=== PATIENT | female | born 2000 | race Caucasian/White ===

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

== ENCOUNTER 2018-01-14 17:26 | Emergency (ER) | payer OTHER, SELFPAY ==
[2018-01-14 17:27] VITALS: BP 98/77; PULSE 91; RESP 16; TEMP 36.9; O2SAT 100; BMI 20.2
--- NOTE | 2018-01-14 17:39 | EKG12_ITS ---
Test Reason : CP Blood Pressure : / mmHG Vent. Rate : 075 BPM Atrial Rate : 075 BPM P-R Int : 174 ms QRS Dur : 094 ms QT Int : 384 ms P-R-T Axes : 081 043 028 degrees QTc Int : 428 ms Normal sinus rhythm RSR' or QR pattern in V1 suggests right ventricular conduction delay Borderline ECG Confirmed by MYLENE LITTLE, MAIKEL ([id number]), multimedia editor ABAD IZAGUIRRE ([id number]) on 01/16/2018 1:44:38 PM Referred By: CLAUS Confirmed By:MAIKEL CHAKRABORTY MD
[2018-01-14 19:02] LABS: Absolute Lymphocyte Count 1.82 X10^3/ul (0.83-4.51); Absolute Neutrophil Count 10.8 X10^3/uL (2.0-7.7); Basophil# 0.02 X10^3/uL; Basophil% 0.1 % (0-1); Eosinophil# 0.04 X10^3/uL; Eosinophils% 0.3 % (0-5); Hematocrit 43.4 % (37-47); Hemoglobin 15.3 g/dl (12.0-15.0); Lymphocyte # 1.82 X10^3/ul (4.0); Lymphocyte % 13.2 % (19-41); Mean Corp Hgb Conc 35.3 g/gl (32-36); Mean Corpuscular Hgb 30.8 pg (27.0-32.0); Mean Corpuscular Volume 87.5 fL (81-99); Mean Platelet Vol. 9.4 fl (6.2-12.0); Monocyte# 1.11 X10^3/uL; Neutrophil # 10.81 X10^3/uL (2.7-7.7); Neutrophil % 78.3 % (47-70); Platelet Count 183 K/mm3 (150-450); RBC Distribution Width SD 38.2 fl (35.1-43.9); Red Blood Count 4.96 M/mm3 (4.2-5.4); White Blood Count 13.8 K/mm3 (4.4-11.0)
[2018-01-14 19:03] VITALS: BP 103/79; BP 109/73; BP 98/65; PULSE 67; PULSE 72; PULSE 89
[2018-01-14 19:14] LABS: POSITIVE COUNT NO; POSITIVE DIFFERENTIAL NO; POSITIVE MORPHOLOGY NO
--- NOTE | 2018-01-14 19:15 | RAD_ITS ---
STUDY: X-RAY CHEST REASON FOR EXAM: Female, 17 years old. Near syncope. Chest pain. TECHNIQUE: PA and lateral views. COMPARISON: 11/09/2017. FINDINGS: The lungs are clear and expanded. There is no demonstrated pleural abnormality. Normal size heart. Normal mediastinum and stephany. Normal visualized pulmonary arteries. Normal visualized aortic arch and descending thoracic aorta. Normal visualized thoracic spine. Normal visualized ribs, clavicles, and shoulders. There is no demonstrated abnormality of the visualized soft tissue structures of the upper abdomen. RAD/Chest PA and Lateral IMPRESSION: Normal x-ray examination of the chest. Electronically Signed: Sharona James MD at 20:18 EDT Tel , Service support ,
[2018-01-14 19:21] LABS: Anion Gap 9 (5-15); BUN 11 mg/dL (7-18); BUN/Creat Ratio 12.9 RATIO (10-20); Calcium,Total 9.3 mg/dL (8.5-10.1); Chloride 106 mmol/L (98-107); Creatinine, Serum 0.85 mg/dL (0.55-1.02); EST Glomerular Filtration Rate 91 mL/min (>60); Est Glom Filt Rate - Afr Amer 110 mL/min (>60); Estimated Creatinine Clearance 87.21 ml/min; Glucose 90 mg/dL (74-106); Potassium 3.2 mmol/L (3.5-5.1); Sodium Level 140 mmol/L (136-145)
[2018-01-14 20:02] VITALS: BP 110/74; PULSE 80; RESP 14; O2SAT 98
[2018-01-14 20:04] LABS: Thyroid Stim Hormone (TSH) 1.82 uIU/mL (0.358-3.74)
[2018-01-14 20:14] LABS: Pregnancy, Serum, hCG Quali. NEGATIVE Negative (0-9 Nonpreg)
--- NOTE | 2018-01-14 20:36 | ED.VISSUMM ---
- ER Visit Summary Date of Service: 01/14/18 Chief Complaint: [S pain and near syncope] History of Present Illness: The patient is a 17 F [presents the emergency department with an episode this afternoon where she started feeling lightheaded while at work and she states that, came on gradually. Patient states that then she felt short of breath and started feeling her heart was racing and she started having numbness throughout her whole body. Patient felt like she was going to pass out but did not actually pass out. Patient had similar episodes like this multiple times in the past for years and has seen a commercial lending assistant. Patient's had significant workup including event monitor and echo and no etiology has been found. Mother states that there is a history of hyperthyroidism in the family she is concerned about thyroid possibly. Patient denies recent illness. Patient does not think she is . Currently her symptoms are mostly resolved.] Physical Examination: [HEENT-PERRLA, EOMI. Cranial nerves II through XII grossly intact. TMs clear. Mucous membranes moist. No adenopathy. Cardiovascular-regular rate and rhythm without murmur or ectopy Lungs-clear to auscultation, chest wall stable without crepitus or subcu emphysema Abdomen-normoactive bowel sounds, soft, nontender, no rebound or rigidity, no peritoneal signs. Extremities-intact ?4, normal range of motion, normal pulses, atraumatic] Test Results: [EKG obtained on arrival showed a sinus rhythm with no segment changes. Ventricular rate was 75 bpm CBC with differential 13.8, hemoglobin 15, hematocrit 43, platelets 23. Chemistries unremarkable other than a slightly depressed potassium 3.2. TSH was 1.82. HCG was negative. Chest x-ray was normal.] Emergency Department Course and Treatment: [Patient was given 40 mEq of potassium chloride p.o.] Treatment Plan: [Patient will be referred to cardiology on-call]. Etiology of her symptoms is unclear however I cannot rule out anxiety disorder patient does have a history of anxiety. Disposition: [Discharged home in stable condition.] Impression: [Chest pain Near syncope Anxiety] This note was generated with [employer] dictation software. It may contain incorrect words, spelling, and punctuation that were not noted in review of the chart prior to signing ED Disposition - Plan for ED Patient: Chief Complaint: Chest Pain Referrals: Mallorie Caba MD [Primary Care Provider] -
--- NOTE | 2018-01-14 20:39 | ED.DCSUM_ITS ---
- ER Visit Summary Date of Service: 01/14/18 Chief Complaint: [S pain and near syncope] History of Present Illness: The patient is a 17 F [presents the emergency department with an episode this afternoon where she started feeling lightheaded while at work and she states that, came on gradually. Patient states that then she felt short of breath and started feeling her heart was racing and she started having numbness throughout her whole body. Patient felt like she was going to pass out but did not actually pass out. Patient had similar episodes like this multiple times in the past for years and has seen a pharmacy analyst. Patient's had significant workup including event monitor and echo and no etiology has been found. Mother states that there is a history of hyperthyroidism in the family she is concerned about thyroid possibly. Patient denies recent illness. Patient does not think she is . Currently her symptoms are mostly resolved.] Physical Examination: [HEENT-PERRLA, EOMI. Cranial nerves II through XII grossly intact. TMs clear. Mucous membranes moist. No adenopathy. Cardiovascular-regular rate and rhythm without murmur or ectopy Lungs-clear to auscultation, chest wall stable without crepitus or subcu emphysema Abdomen-normoactive bowel sounds, soft, nontender, no rebound or rigidity, no peritoneal signs. Extremities-intact ?4, normal range of motion, normal pulses, atraumatic] Test Results: [EKG obtained on arrival showed a sinus rhythm with no segment changes. Ventricular rate was 75 bpm CBC with differential 13.8, hemoglobin 15 , hematocrit 43, platelets 23. Chemistries unremarkable other than a slightly depressed potassium 3.2. TSH was 1.82. HCG was negative. Chest x-ray was normal.] Emergency Department Course and Treatment: [Patient was given 40 mEq of potassium chloride p.o.] Treatment Plan: [Patient will be referred to cardiology on-call]. Etiology of her symptoms is unclear however I cannot rule out anxiety disorder patient does have a history of anxiety. Disposition: [Discharged home in stable condition.] Impression: [Chest pain Near syncope Anxiety] This note was generated with [employer] dictation software. It may contain incorrect words, spelling, and punctuation that were not noted in review of the chart prior to signing ED Disposition - Plan for ED Patient: Chief Complaint: Chest Pain Referrals: Mallorie Caba MD [Primary Care Provider] -
--- NOTE | 2018-01-14 20:39 | ED.DEP ---
ED Disposition - Plan for ED Patient: Chief Complaint: Chest Pain Instructions: ED Chest Pain Atypical Unkn Cause, ED Stress React Referrals: Mallorie Caba MD [Primary Care Provider] - Victoriano Cabrera MD [STAFF PHYSICIAN] - 3-5 Days
[2018-01-14 20:47] VITALS: BP 105/72; PULSE 75; RESP 14; O2SAT 98
== END 2018-01-14 20:48 | disposition home or self-care (01) ==
LOC: ED 18:44
PROVIDERS: Emergency Provider Emergency Medicine; Family Provider Pediatrics; PCP Pediatrics
DX: R07.9 Chest pain, unspecified (principal); R55 Syncope and collapse; F41.9 Anxiety disorder, unspecified; Z87.891 Personal history of nicotine dependence
CPT/HCPCS: 71046; 80048; 84443; 84703; 85025; 93005; 99284; A4216

== ENCOUNTER 2018-04-02 01:25 | Emergency (ER) | payer OTHER, SELFPAY ==
[2018-04-02 01:28] VITALS: BP 102/62; PULSE 88; RESP 16; TEMP 36.8; O2SAT 98; BMI 19.5
--- NOTE | 2018-04-02 02:00 | ED.VISSUMM ---
- ER Visit Summary Date of Service: 04/02/18 Chief Complaint: Bilateral ear wounds History of Present Illness: The patient is a 17 F who has ear piercings that are engaged. She tried to increase the gauge 3 days ago. Since that time she has had some bleeding and pain. She was concerned that she tore her ear. She presented for a wound check to see if she needed any sutures. She otherwise is without complaint. Physical Examination: Afebrile vitals are normal Patient has bilateral ear appears with a gauge still on the right side of the left side plastic gauge has been removed the wound on the left is currently closed and there is dried blood there is no draining open wound or bleeding the gauge on the right was removed and shows a well-healing piercing Test Results: Not indicated Emergency Department Course and Treatment: Patient has no wounds that were required sutured closure. The right does not appear to have any obvious tears and does appear to be healing and there is not any open wound on the left that I would suture at this point. She was advised on local wound care and was discharged home. Treatment Plan: [] Disposition: Discharge Impression: Wound check bilateral ears This note was generated with [employer] dictation software. It may contain incorrect words, spelling, and punctuation that were not noted in review of the chart prior to signing ED Disposition - Plan for ED Patient: Chief Complaint: Wound Check Referrals: Mallorie Caba MD [Primary Care Provider] -
--- NOTE | 2018-04-02 02:03 | DCINST.ED_ITS ---
ED Disposition - Plan for ED Patient: Chief Complaint: Wound Check Referrals: Mallorie Caba MD [Primary Care Provider] - Additional Instructions: You were seen for a wound check on both of your ears. These appear to be well- healing. There are no wounds that would require stitches. Keep the areas clean and dry. They are okay to gently wash over with soap and water. Avoid submersion such as swimming or bath. Return for any new or worsening symptoms including increased pain increased bleeding increased redness or drainage.
--- OUTSIDE RECORDS SUMMARY | 2018-05-14 17:51 | XMS RPT_ITS ---
:2000 Author Organization OHIP [employer] Name Relationship Address Phone UGALDE MARCO Unavailable [address] [place] [address] August Unavailable [address] + [place] [address] WALWO Unavailable [address] + [place] [address] MARCO UGALDE Un[address] [place] [address] August Unavailable [address] + [place] [address] WALWO Unavailable [address] + [place] [address] CHERY STORES Unavailable [address] + [place] [address] [address] + [place] [address] August Unavailable [address] + [place] [address] CHARLA MALCOLM Unavailable Unavailable Unavailable CHERY STORES Unavailable [address] + [place] [address] [address]CO [address] Un[address] + [place] [address] August Unavailable [address] + [place] [address] CHARLA MALCOLM Unavailable Unavailable Unavailable August Unavailable [address] + [place] [address] CHARLA MALCOLM Unavailable Unavailable Unavailable August Unavailable [address] + [place] [address] CHARLA MALCOLM Unavailable Unavailable Unavailable CHERY STORES Unavailable [address] + [place] [address]CO [address]DE Un[address] + [place] [address] CHERY STORES Unavailable [address] + [place] [address] MARCO [address] Un[address] [place] [address] August Unavailable [address] + [place] [address] MALCOLMCHARLA Unavailable Unavailable Unavailable Care Team Providers Name Role Phone GARRY IZAGUIRRE Attending Unavailable REFERRED, SELF Referring Unavailable IZAGUIRRE, GARRY A Primary Care Unavailable IZAGUIRRE, GARRY A Attending Unavailable REFERRED, SELF Referring Unavailable IZAGUIRRE, GARRY A Primary Care Unavailable GABI MACDONALD Attending Unavailable IZAGUIRRE, GARRY A Referring Unavailable IZAGUIRRE, GARRY A Primary Care Unavailable KALPANA TINSLEY Attending Unavailable IZAGUIRRE, GARRY A Referring Unavailable IZAGUIRRE, GARRY A Primary Care Unavailable GABI MACDONALD Attending Unavailable IZAGUIRRE, GARRY A Referring Unavailable IZAGUIRRE, GARRY A Primary Care Unavailable Izaguirre, Garry Attending Unavailable Izaguirre, Garry Referring Unavailable Izaguirre, Garry Primary Care Unavailable Izaguirre, Garry Attending Unavailable Izaguirre, Garry Referring Unavailable Izaguirre, Garry Primary Care Unavailable Izaguirre, Garry Primary Care Unavailable Victoriano Grady Attending Unavailable Izaguirre, Garry Primary Care Unavailable Nereyda Altamirano Attending Unavailable Izaguirre, Garry Primary Care Unavailable Francia Rivas Attending Unavailable Izaguirre, Garry Primary Care Unavailable Blas Clayton Attending Unavailable PROBLEMS PROBLEMS DATE TYPE CONDITION / CODE ATTENDING STATUS SOURCE 06/21/2017 Unknown R55 - Syncope Garry Izaguirre Active Mobile and collapse / Community R55(ICD-10) Hospital Repository PROCEDURES PROCEDURES No Procedure Records FoundRESULTS RESULTS DISCHARGE INSTRUCTION Observed: 04/02/2018 Status: F Source: [place] 2:03 AM [facility] REPOSITORY [facility] Medical Records Department [address] [place] [address] Discharge Instruction 04/02/18 0201 MR#: [id number] Acct: [id number] Name: EMMA MALCOLM Rep #: [id number] : 2000 17 From: Blas Clayton MD PCP: Garry Izaguirre MD Status: REG ER ED Disposition - Plan for ED Patient: Chief Complaint: Wound Check Referrals: Garry Izaguirre MD [Primary Care Provider] - Additional Instructions: You were seen for a wound check on both of your ears. These appear to be well-healing. There are no wounds that would require stitches. Keep the areas clean and dry. They are okay to gently wash over with soap and water. Avoid submersion such as swimming or bath. Return for any new or worsening symptoms including increased pain increased bleeding increased redness or drainage. What to do if you have Problems For any increased pain, shortness of breath, bleeding, nausea or vomiting, chest pain, or any unexpected problems, contact your Primary Care Provider. Call [employer] [facility] ([phone]) or report to the closest Emergency Room. Call 911 if necessary. 04/02/18 0203 <Electronically signed by Blas Clayton MD> Date Blas Clayton MD Cosigner Signature (If Indicated): Date CC: Garry Izaguirre MD EMERGENCY DEPARTMENT Observed: 04/02/2018 Status: F Source: [place] SUMMARY 2:01 AM [facility] Medical Records Department [address] [place] [address] Emergency Department Summary 04/02/18 0200 MR#: [id number] Acct: [id number] Name: EMMA MALCOLM Rep #: [id number] : 2000 17 From: Blas Clayton MD PCP: Garry Izaguirre MD Status: REG ER - ER Visit Summary Date of Service: 04/02/18 Chief Complaint: Bilateral ear wounds History of Present Illness: The patient is a 17 F who has ear piercings that are engaged. She tried to increase the gauge 3 days ago. Since that time she has had some bleeding and pain. She was concerned that she tore her ear. She presented for a wound check to see if she needed any sutures. She otherwise is without complaint. Physical Examination: Afebrile vitals are normal Patient has bilateral ear appears with a gauge still on the right side of the left side plastic gauge has been removed the wound on the left is currently closed and there is dried blood there is no draining open wound or bleeding the gauge on the right was removed and shows a well-healing piercing Test Results: Not indicated Emergency Department Course and Treatment: Patient has no wounds that were required sutured closure. The right does not appear to have any obvious tears and does appear to be healing and there is not any open wound on the left that I would suture at this point. She was advised on local wound care and was discharged home. Treatment Plan: [] Disposition: Discharge Impression: Wound check bilateral ears This note was generated with [employer] dictation software. It may contain incorrect words, spelling, and punctuation that were not noted in review of the chart prior to signing ED Disposition - Plan for ED Patient: Chief Complaint: Wound Check Referrals: Garry Izaguirre MD [Primary Care Provider] - What to do if you have Problems For any increased pain, shortness of breath, bleeding, nausea or vomiting, chest pain, or any unexpected problems, contact your Primary Care Provider. Call [facility] ([phone]) or report to the closest Emergency Room. Call 911 if necessary. 04/02/18 0201 <Electronically signed by Blas Clayton MD> Date Blas Clayton MD Cosigner Signature (If Indicated): Date CC: Garry Izaguirre MD 12 LEAD ELECTROCARDIOGRAM Observed: 01/16/2018 Status: F Source: [place] 1:45 PM [facility] Cardiovascular Services [address] [place] [address] 12 Lead EKG 01/14/18 1733 MR#: [id number] Acct: [id number] Name: EMMA MALCOLM N Rep #: [id number] : 2000 17 From: Gunnar Sosa MD Attending Dr: Status: DEP ER Ordering Dr: Saul Colunga Date: 01/14/18 Location: ED Sex: F C Admitted: Test Reason : CP Blood Pressure : / mmHG Vent. Rate : 075 BPM Atrial Rate : 075 BPM P-R Int : 174 ms QRS Dur : 094 ms QT Int : 384 ms P-R-T Axes : 081 043 028 degrees QTc Int : 428 ms Normal sinus rhythm RSR' or QR pattern in V1 suggests right ventricular conduction delay Borderline ECG Confirmed by GUNNAR SOSA MD ([id number]), photograph editor ABAD IZAGUIRRE ([id number]) on 01/16/2018 1:44:38 PM Referred By: CLAUS Confirmed By:GUNNAR SOSA MD 01/16/18 1344 Date Gunnar Sosa MD CC: ED PHYSICIAN PROVIDER; Garry Izaguirre MD; Francia Rivas DO Signed DISCHARGE INSTRUCTION Observed: 01/14/2018 Status: F Source: [place] 8:40 PM [facility] Medical Records Department [address] [place] [address] Discharge Instruction 01/14/182038 MR#: [id number] Acct: [id number] Name: EMMA MALCOLM N Rep #: [id number] : 2000 17 From: Francia Rivas DO PCP: Garry Izaguirre MD Status: REG ER ED Disposition - Plan for ED Patient: Chief Complaint: Chest Pain Instructions: ED Chest Pain Atypical Unkn Cause, ED Stress React Referrals: Garry Izaguirre MD [Primary Care Provider] - Victoriano Cabrera MD [STAFF PHYSICIAN] - 3-5 Days What to do if you have Problems For any increased pain, shortness of breath, bleeding, nausea or vomiting, chest pain, or any unexpected problems, contact your Primary Care Provider. Call [employer] [facility] ([phone]) or report to the closest Emergency Room. Call 911 if necessary. 01/14/182039 <Electronically signed by Francia Rivas DO> Date Francia Rivas DO Cosigner Signature (If Indicated): Date CC: Garry Izaguirre MD EMERGENCY DEPARTMENT Observed: 01/14/2018 Status: F Source: [place] SUMMARY 8:39 PM [facility] Medical Records Department [address] [place] [address] Emergency Department Summary 01/14/182035 MR#: [id number] Acct: [id number] Name: EMMA MALCOLM Rep #: [id number] : 2000 From: Francia Rivas DO PCP: Garry Izaguirre MD Status: REG ER - ER Visit Summary Date of Service: 01/14/18 Chief Complaint: [S pain and near syncope] History of Present Illness: The patient is a 17 F [presents the emergency department with an episode this afternoon where she started feeling lightheaded while at work and she states that, came on gradually. Patient states that then she felt short of breath and started feeling her heart was racing and she started having numbness throughout her whole body. Patient felt like she was going to pass out but did not actually pass out. 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 Patient's had significant workup including event monitor and echo and no etiology has been found. Mother states that there is a history of hyperthyroidism in the family she is concerned about thyroid possibly. Patient denies recent illness. Patient does not think she is . Currently her symptoms are mostly resolved.] Physical Examination: [HEENT-PERRLA, EOMI. Cranial nerves II through XII grossly intact. TMs clear. Mucous membranes moist. No adenopathy. Cardiovascular-regular rate and rhythm without murmur or ectopy Lungs-clear to auscultation, chest wall stable without crepitus or subcu emphysema Abdomen-normoactive bowel sounds, soft, nontender, no rebound or rigidity, no peritoneal signs. Extremities-intact 4, normal range of motion, normal pulses, atraumatic] Test Results: [EKG obtained on arrival showed a sinus rhythm with no segment changes. Ventricular rate was 75 bpm CBC with differential 13.8, hemoglobin 15, hematocrit 43, platelets 23. Chemistries unremarkable other than a slightly depressed potassium 3.2. TSH was 1.82. HCG was negative. Chest x-ray was normal.] Emergency Department Course and Treatment: [Patient was given 40 mEq of potassium chloride p.o.] Treatment Plan: [Patient will be referred to cardiology on- call]. Etiology of her symptoms is unclear however I cannot rule out anxiety disorder patient does have a history of anxiety. Disposition: [Discharged home in stable condition.] Impression: [Chest pain Near syncope Anxiety] This note was generated with [employer] dictation software. It may contain incorrect words, spelling, and punctuation that were not noted in review of the chart prior to signing ED Disposition - Plan for ED Patient: Chief Complaint: Chest Pain Referrals: Garry Izaguirre MD [Primary Care Provider] - What to do if you have Problems For any increased pain, shortness of breath, bleeding, nausea or vomiting, chest pain, or any unexpected problems, contact your Primary Care Provider. Call [facility] ([phone]) or report to the closest Emergency Room. Call 911 if necessary. 01/14/182038 <Electronically signed by Francia Rivas DO> Date Francia Rivas DO Cosigner Signature (If Indicated): Date CC: Garry Izaguirre MD CBC W/DIFF, AUTOMATED Collected: 01/14/2018 Status: F Source: [place] 6:54 PM [facility] TYPE CODE TESTS RESULT OUT OF RANGE REFERENCE UNITS LAB L100.1000 4.4-11.0 K/mm3 High WBC 13.8 LAB L100.1200 4.2-5.4 M/mm3 Normal RBC 4.96 LAB L100.1300 12.0-15.0 g/dl High HGB 15.3 LAB L100.1400 37-47 % Normal HCT 43.4 LAB L100.1500 81-99 fL Normal MCV 87.5 LAB L100.1600 27.0-32.0 pg Normal MCH 30.8 LAB L100.1700 32-36 g/gl Normal MCHC 35.3 LAB L100.1810 11.6-14.6 % Normal RDW CV 12.0 LAB L100.1820 35.1-43.9 fl Normal RDW SD 38.2 LAB L100.1900 150-450 K/mm3 Normal PLT 183 LAB L100.2000 6.2-12.0 fl Normal MPV 9.4 LAB L100.2100 47-70 % High NEUT% 78.3 LAB L100.2200 19-41 % Low LY% 13.2 LAB L100.2300 0-10 % Normal MONO% 8.0 LAB L100.2400 0-5 % Normal EO% 0.3 LAB L100.2500 0-1 % Normal BASO% 0.1 LAB L100.2550 0.0-0.9 % Normal IM GRAN % 0.100 Result Comment: IG% - Immature Granulocytes (promyelocytes, myelocytes and metamyelocytes) > 1% indicates that a LEFT SHIFT is Present. LAB L100.2620 2.0-7.7 X10 3/uL High Absolute Neut 10.8 LAB L100.2720 0.83-4.51 X10 3/ul Normal Absolute Lymph 1.82 Performed By: #### L100.0100 #### [facility] [address] [place], [place], [address] BASIC METABOLIC Collected: 01/14/2018 Status: F Source: [place] PROFILE ([facility]) 6:54 PM [facility] TYPE CODE TESTS RESULT OUT OF RANGE REFERENCE UNITS LAB L501.0100 74-106 mg/dL Normal GLU 90 Result Comment: Please note revised GLUCOSE reference range effective 2017. LAB L501.1000 7-18 mg/dL Normal BUN 11 LAB L501.1100 0.55-1.02 mg/dL Normal CREAT,SERUM 0.85 Result Comment: The validity of the calculated GFR AND GFRAA in patients over 70 years has not been determined. Clinical correlation is essential. LAB L501.1110 >60 mL/min Normal EST GFR 91 Result Comment: Non- GFR Calc LAB L501.1115 >60 mL/min Normal EST GFR - AA 110 Result Comment: GFR Calc LAB L501.1255 ml/min Normal Estimated CRCL 87.21 LAB L501.1300 10-20 RATIO Normal BUN/CRE 12.9 LAB L501.2200 8.5-10 mg/dL Normal .1 CA 9.3 LAB L501.5300 136-14 mmol/L Normal 5 NA 140 LAB L501.5600 3.5-5. mmol/L Low 1 K 3.2 LAB L501.5900 98-107 mmol/L Normal CL 106 LAB L501.6100 21.0-3 mmol/L Normal 2.0 CO2 25.0 LAB L501.6200 5-15 Normal GAP 9 Performed By: #### L500.2500 #### [facility] [address] [facility]. [place], [place], [address] THYROID STIM HORMONE Collected: 01/14/2018 Status: F Source: [place] ([facility]) 6:54 PM [facility] TYPE CODE TESTS RESULT OUT OF RANGE REFERENCE UNITS LAB L501.9520 0.358-3.74 uIU/mL Normal TSH 1.82 Performed By: #### L501.9520 #### [facility] [address] [place], [place], [address] ,SERUM,HCG QUALI. Collected: Status: F Source: [place] 01/14/2018 6:54 PM [facility] TYPE CODE TESTS RESULT OUT OF REFERENCE UNITS RANGE LAB L700.6700 =>Qualitative mIU/mL Normal HCG Qual < 1 triggr LAB L700.7000 0-9 Nonpreg Negative Normal HCGSQUAL NEGATIVE Performed By: #### L700.6800 #### [facility] [address] [place], [place], [address] CHEST PA AND LATERAL Observed: 01/14/2018 Status: F Source: [place] 6:31 PM [facility] REPOSITORY [facility] Imaging Services [address] [place] [address] Chest PA and Lateral MR#: [id number] Acct: [id number] Name: EMMA MALCOLM Rep #: [id number] : 2000 F 17 From: Sharona James MD PCP: Garry Izaguirre MD Status: REG ER Study: Chest PA and Lateral Date of Exam: 01/14/18 Exam# [id number] Ordering Dr: Francia Rivas DO STUDY: X-RAY CHEST REASON FOR EXAM: Female, 17 years old. Near syncope. Chest pain. TECHNIQUE: PA and lateral views. COMPARISON: 11/09/2017. FINDINGS: The lungs are clear and expanded. There is no demonstrated pleural abnormality. Normal size heart. Normal mediastinum and stephany. Normal visualized pulmonary arteries. Normal visualized aortic arch and descending thoracic aorta. Normal visualized thoracic spine. Normal visualized ribs, clavicles, and shoulders. There is no demonstrated abnormality of the visualized soft tissue structures of the upper abdomen. RAD/Chest PA and Lateral IMPRESSION: Normal x-ray examination of the chest. Electronically Signed: Sharona James MD at 20:18 EDT Tel , Service support , CC: Garry Izaguirre MD; Francia Rivas DO Tape Weaver: Signed 12 LEAD ELECTROCARDIOGRAM Observed: 11/12/2017 Status: F Source: [place] 2:19 PM [facility] REPOSITORY [facility] Cardiovascular Services [address] [place] [address] 12 Lead EKG 11/09/17 2312 MR#: [id number] Acct: [id number] Name: EMMA MALCOLM Edie Rep #: [id number] : 2000 16 From: Gunnar Sosa MD Attending Dr: Status: DEP ER Ordering Dr: Nereyda Altamirano MD Date: 11/09/17 Location: ED Sex: F C Admitted: Test Reason : Blood Pressure : / mmHG Vent. Rate : 082 BPM Atrial Rate : 082 BPM P-R Int : 188 ms QRS Dur : 084 ms QT Int : 376 ms P-R-T Axes : 077 032 030 degrees QTc Int : 439 ms Normal sinus rhythm with sinus arrhythmia Low voltage QRS Septal infarct , age undetermined Abnormal ECG Confirmed by GUNNAR SOSA MD ([id number]), photograph editor ABAD IZAGUIRRE ([id number]) on 11/12/2017 2:19:22 PM Referred By: JAI Confirmed By:GUNNAR SOSA MD 11/12/17 1419 Date Gunnar Sosa MD CC: Nereyda Altamirano MD; Garry Izaguirre MD Signed DISCHARGE INSTRUCTION Observed: 11/10/2017 Status: F Source: [place] 3:05 AM [facility] Medical Records Department [address] [place] [address] Discharge Instruction 11/10/17304 MR#: [id number] Acct: [id number] Name: EMMA MALCOLM Rep #: [id number] : 2000 16 From: Nereyda Altamirano MD PCP: Garry Izaguirre MD Status: REG ER ED Disposition - Plan for ED Patient: Chief Complaint: Dizziness Instructions: ED Dizziness [facility] Referrals: Garry Izaguirre MD [Primary Care Provider] - What to do if you have Problems For any increased pain, shortness of breath, bleeding, nausea or vomiting, chest pain, or any unexpected problems, contact your Primary Care Provider. Call [facility] ([phone]) or report to the closest Emergency Room. Call 911 if necessary. 11/10/17304 <Electronically signed by Nereyda Altamirano MD> Date Nereyda Altamirano MD Cosigner Signature (If Indicated): Date CC: Garry Izaguirre MD EMERGENCY DEPARTMENT Observed: 11/10/2017 Status: F Source: [place] SUMMARY 3:05 AM [facility] Medical Records Department [address] [place] [address] Emergency Department Summary 11/09/17 2246 MR#: [id number] Acct: [id number] Name: EMMA MALCOLM Rep #: [id number] : 2000 From: Nereyda Altamirano MD PCP: Garry Izaguirre MD Status: REG ER - ER Visit Summary Date of Service: 11/09/17 Chief Complaint: Dizziness History of Present Illness: The patient is a 16 F presenting with dizziness and lightheadedness. She states this started yesterday. She has had dizziness which is worse with standing. Denies syncope. She states she has been drinking fluids but probably not enough. She says she has been out in the heat, but not too much. She denies abdominal pain. She has nausea with no vomiting. No diarrhea. She has had constant chest pain since this morning. Denies other complaints. Physical Examination: Vitals are stable. Patient is afebrile. Alert no acute distress. HEENT exam is unremarkable. Neck is supple. Lungs are clear and equal bilaterally. Heart is regular rate and rhythm. Abdomen is soft nontender nondistended. Extremities are unremarkable. Skin is warm and dry. No focal neurologic deficit. Remainder of exam is unremarkable. Emergency Department Course and Treatment: Patient is given Zofran p.o. Initially unable to obtain IV access. CBC, chemistries unremarkable other than potassium 3.3. Troponin is negative. D-dimer is 0.73. Chest x-ray shows no acute process. HCG negative. Orthostatics are negative. Due to elevated d-dimer, CTA chest was obtained after IV access established and is normal. Patient is able to tolerate p.o. in the emergency department. She is resting comfortably on reevaluation. She is advised to follow-up with her primary care physician. She is advised return to ED if worsening complaints. Disposition: Discharged home Impression: Dizziness This note was generated with [employer] dictation software. It may contain incorrect words, spelling, and punctuation that were not noted in review of the chart prior to signing ED Disposition - Plan for ED Patient: Chief Complaint: Dizziness Referrals: Garry Izaguirre MD [Primary Care Provider] - What to do if you have Problems For any increased pain, shortness of breath, bleeding, nausea or vomiting, chest pain, or any unexpected problems, contact your Primary Care Provider. Call [facility] ([phone]) or report to the closest Emergency Room. Call 911 if necessary. 11/10/17 0305 <Electronically signed by Nereyda Altamirano MD> Date Nereyda Altamirano MD Cosigner Signature (If Indicated): Date CC: Garry Izaguirre MD CTA CHEST W/WO Observed: 11/10/2017 Status: F Source: [place] CONTRAST 1:19 AM [facility] Imaging Services [address] [place] [address] CTA Chest W/WO Contrast MR#: [id number] Acct: [id number] Name: EMMA MALCOLM Rep #: [id number] : 2000 F 16 From: Freddy Isaac PCP: Garry Izaguirre MD Status: REG ER Study: CTA Chest W/WO Contrast Date of Exam: 11/10/17 Exam# [id number] Ordering Dr: Nereyda Altamirano MD STUDY: CTA CHEST REASON FOR EXAM: Female, 16 years old. Chest pain RADIATION DOSAGE (If Supplied By Facility): CTDIvol = ( 5.38 ) mGy, DLP = ( 158.03 ) mGycm TECHNIQUE: The examination was performed with the intravenous administration of 75 ml of Isovue 370 contrast material. Post-processing of the angiographic images was performed, with multiplanar reformation and 3D reconstruction. Individualized dose optimization techniques were used for this CT. COMPARISON: None. FINDINGS: Normal enhancement of the main pulmonary artery and right and left pulmonary arteries. Normal enhancement of the bilateral peripheral pulmonary arteries. There is no demonstrated pulmonary embolism. Normal thoracic aorta and visualized great vessels. There is no demonstrated aortic dissection. Normal heart and pericardium. Normal mediastinum. Normal hilar regions. Normal visualized trachea and bronchi. The lungs are well expanded. Normal pulmonary parenchyma. Normal pleura. Normal chest wall structures. Normal osseous structures. Normal visualized upper abdomen. CT/CTA Chest W/WO Contrast IMPRESSION: Normal CTA chest examination, without a demonstrated pulmonary embolism or arterial dissection. Electronically Signed: Freddy Gray MD at 2:32 EDT , Service support , CC: Nereyda Altamirano MD; Garry Izaguirre MD Tape Weaver: Signed CBC W/DIFF, AUTOMATED Collected: 11/10/2017 Status: F Source: [place] 12:43 AM [facility] TYPE CODE TESTS RESULT OUT OF RANGE REFERENCE UNITS LAB L100.1000 4.4-11.0 K/mm3 Normal WBC 7.3 LAB L100.1200 4.2-5.4 M/mm3 Normal RBC 5.06 LAB L100.1300 12.0-15.0 g/dl High HGB 15.1 LAB L100.1400 37-47 % Normal HCT 43.5 LAB L100.1500 81-99 fL Normal MCV 86.0 LAB L100.1600 27.0-32.0 pg Normal MCH 29.8 LAB L100.1700 32-36 g/gl Normal MCHC 34.7 LAB L100.1810 11.6-14.6 % Normal RDW CV 13.1 LAB L100.1820 35.1-43.9 fl Normal RDW SD 40.3 LAB L100.1900 150-450 K/mm3 Normal PLT 178 LAB L100.2000 6.2-12.0 fl Normal MPV 9.6 LAB L100.2100 47-70 % Normal NEUT% 49.2 LAB L100.2200 19-41 % Normal LY% 37.7 LAB L100.2300 0-10 % High MONO% 10.8 LAB L100.2400 0-5 % Normal EO% 1.5 LAB L100.2500 0-1 % Normal BASO% 0.5 LAB L100.2550 0.0-0.9 % Normal IM GRAN % 0.300 Result Comment: IG% - Immature Granulocytes (promyelocytes, myelocytes and metamyelocytes) > 1% indicates that a LEFT SHIFT is Present. LAB L100.2620 2.0-7.7 X10 3/uL Normal Absolute Neut 3.6 LAB L100.2720 0.83-4.51 X10 3/ul Normal Absolute Lymph 2.75 Performed By: #### L100.0100 #### [facility] [address] [place], [place], [address] BASIC METABOLIC Collected: 11/10/2017 Status: F Source: [place] PROFILE (BMP) 12:43 AM [facility] [place] [facility] TYPE CODE TESTS RESULT OUT OF RANGE REFERENCE UNITS LAB L501.0100 74-106 mg/dL Normal GLU 81 Result Comment: Please note revised GLUCOSE reference range effective 2017. LAB L501.1000 7-18 mg/dL Normal BUN 10 LAB L501.1100 0.55-1.02 mg/dL Normal CREAT,SERUM 0.81 Result Comment: The validity of the calculated GFR AND GFRAA in patients over 70 years has not been determined. Clinical correlation is essential. LAB L501.1110 >60 mL/min Normal EST GFR 96 Result Comment: Non- GFR Calc LAB L501.1115 >60 mL/min Normal EST GFR - AA 117 Result Comment: GFR Calc LAB L501.1255 ml/min Normal Estimated CRCL 88.72 LAB L501.1300 10-20 RATIO Normal BUN/CRE 12.3 LAB L501.2200 8.5-10 mg/dL Normal .1 CA 9.1 LAB L501.5300 136-14 mmol/L Normal 5 NA 142 LAB L501.5600 3.5-5. mmol/L Low 1 K 3.3 LAB L501.5900 98-107 mmol/L High CL 108 LAB L501.6100 21.0-3 mmol/L Normal 2.0 CO2 24.0 LAB L501.6200 5-15 Normal GAP 10 Performed By: #### L500.2500, L501.4010 #### [facility] [address] [place], [address] TROPONIN-I Collected: 11/10/2017 Status: F Source: [place] 12:43 AM [facility] TYPE CODE TESTS RESULT OUT OF RANGE REFERENCE UNITS LAB L501.4010 <0.045 ng/mL Normal < 0.015 TROPONIN-I Result Comment: TROPONIN-I EXPECTED VALUES <0.045 Negative 0.045 - 0.590 Consistent with Cardiac Damage > OR = 0.600 Critical Value Not every elevated troponin is indicative of ID. These values should be used with clinical judgement in examining the patient's clinical picture for diagnosis. To establish a diagnosis of ID versus myocardial injury, there must be a demonstrated rise and/or fall in the troponin values, in addition to ischemic symptoms, EKG changes, new regional wall motion abnormality, and/or angiographical evidence. PLEASE NOTE: REFERENCE RANGES EDITED 17 Performed By: #### L500.2500, L501.4010 #### [facility] [address] [facility]. [place], [place], [id number] D-DIMER QUANTITATIVE Collected: 11/10/2017 Status: F Source: [place] (DVT/PE) 12:43 AM [facility] TYPE CODE TESTS RESULT OUT OF RANGE REFERENCE UNITS LAB L300.8000 0.27-0.49 FEU/ug/m High alert D-DIMER 0.73 QUANT Result Comment: RESULTS CALLED TO NESTOR ARNOLD RN 11/10/17 0109 Tawanda Messina. REPORT READ BACK BY . D-Dimer ELEVATED (>0.49): Additional studies and clinical assessments are indicated to conclude diagnosis of: Deep Vein Thrombosis (DVT) or Pulmonary Embolism (PE) Performed By: #### L300.8000 #### [facility] [address] [place], [place], [id number] ,SERUM,HCG QUALI. Collected: Status: F Source: [place] 11/10/2017 12:43 AM [facility] TYPE CODE TESTS RESULT OUT OF REFERENCE UNITS RANGE LAB L700.7000 0-9 Nonpreg Negative Normal HCGSQUAL NEGATIVE LAB L700.6700 =>Qualitative mIU/mL Normal HCG Qual < 1 triggr Performed By: #### L700.6800 #### [facility] [address] [place], [address] CHEST 1 VIEW Observed: 11/09/2017 Status: F Source: [place] (PORTABLE) 10:46 PM [facility] Imaging Services [address] [place] [address] Chest 1 View (Portable) MR#: [id number] Acct: [id number] Name: EMMA MALCOLM Rep #: [id number] : 2000 F 16 From: Esperanza Sky MD PCP: Garry Izaguirre MD Status: REG ER Study: Chest 1 View (Portable) Date of Exam: 11/09/17 Exam# [id number] Ordering Dr: Nereyda Altamirano MD STUDY: X-RAY CHEST REASON FOR EXAM: Female, 16 years old. Dizziness. TECHNIQUE: Single AP portable view of the chest. COMPARISON: Prior chest radiograph from January 22, 2013 FINDINGS: The lungs are clear and expanded. There is no demonstrated pleural abnormality. Normal size heart. Normal mediastinum and stephany. Normal visualized pulmonary arteries. Normal visualized aortic arch and descending thoracic aorta. Normal visualized thoracic spine. Normal visualized ribs, clavicles, and shoulders. There is no demonstrated abnormality of the visualized soft tissue structures of the upper abdomen. RAD/Chest 1 View (Portable) IMPRESSION: Normal x-ray examination of the chest. Electronically Signed: Esperanza Sky MD at 23:23 EDT , Service support , CC: Nereyda Altamirano MD; Garry Izaguirre MD Tape Weaver: Signed PROGRESS Observed: 10/03/2017 Status: COMPLETED Source: [place] 7:01 PM [facility] REPOSITORY HNO ID: [id number] Author: La Clinton Service: (none) Author Type: Nurse Practitioner Type: Progress Notes Filed: 10/03/2017 7:19 PM Note Text: Subjective HPI HPI Emma Malcolm is a 16 year old female who presents today for CC of hives/welts This started this morning. She is also having itching burning sensation. She denies any new products, clothing, lotions, no fever or ill feeling symptoms. and detergent. She recently started on nuvaring 10 days ago Symptoms are worsened by nothing She has tried an ice pack Risk factors not known. PMH seasonal allergis BP 102/70 Pulse 106 Temp 36.9 ?C (98.4 ?F) (Left Tympanic) Resp 16 Wt 50.1 kg (110 lb 6.4 oz) ALLERGIES Allergen Reactions - Penicillins Swelling Pt is allergic to all Cillins ACTIVE PROBLEM LIST Lgi Bleed Family History Problem Relation Age of Onset - Thyroid Mother hypo in 2002 - other Mother glasses - Thyroid Maternal Grandmother hyop - other Father glasses for reading and driving - No Ocular Disease Sister - No Ocular Disease Maternal Grandfather - No Ocular Disease Paternal Grandmother - Cancer Paternal Grandfather - other Other Retinitis pigmentosis - other Maternal Uncle Retinitis pigmentosis - other Paternal Aunt High myopia no dx known/High myopia no dx known - other Other High myopia no dx known/High myopia no dx known Social History Marital status: Single Spouse name: Years of education: Number of children: Occupational History Occupation Employer Comment student Social History Main Topics Smoking status: Current Every Day Smoker Packs/day: 0.50 Years: 1.00 Types: Cigarettes Smokeless tobacco: Never Used Comment: 4-5 cigarettes per day Alcohol use: No Drug use: No Sexual activity: No Review of Systems Constitutional: Negative for chills, fever and malaise/fatigue. Genitourinary: Negative for dysuria. Musculoskeletal: Negative for joint pain and myalgias. Skin: Negative for rash. Welts on left back side hip and buttock Neurological: Negative for headaches. Objective Physical Exam Constitutional: She is oriented to person, place, and time and well-developed, well-nourished, and in no distress. No distress. HENT: Head: Normocephalic and atraumatic. Eyes: Conjunctivae and EOM are normal. Pupils are equal, round, and reactive to light. Neck: Normal range of motion. Neck supple. Pulmonary/Chest: Effort normal. Neurological: She is alert and oriented to person, place, and time. Skin: Skin is warm and dry. Rash noted. Rash is urticarial. There is erythema. Psychiatric: Affect normal. Nursing note and vitals reviewed. ASSESSMENT/PLAN: 1. Hives - ICD9: 708.9, ICD10: L50.9 - Likely viral or allergic etiology discussed with patient - Treatment with antihistamine- Zyrtec 10mg po QD and Benadryl OTC - 25 mg - 50 mg every 6 hours as needed - Anti itch therapy of OTC 1% Hydrocortisone cream and Calomine lotion recommended prn - Follow up if symptoms persist or worsen. Diagnosis and treatment plan were discussed and questions were answered to the patient's satisfaction. Pt acknowledged understanding of concepts and follow up plan. Specific signs and symptoms that would indicate the need for higher level of care were discussed in detail warranting prompt ER evaluation. La Clinton APRN.CNP CNOV Observed: 10/03/2017 Status: COMPLETED Source: [place] 6:30 PM [facility] REPOSITORY Office Visit (WSTR) EMMA MALCOLM ([id number]) 2000 F Date Time Provider Department 10/03/17 6:30 PM LA CLINTON (STEPHANIA) WSTR During your visit today, we recorded the following information about you: Temperature Pulse Respiration Blood pressure 98.4 degrees 106/minute 16/minute 102/70 Weight 50.1 kg La Clinton APRN.CNP 10/03/2017 7:19 PM Signed Subjective HPI HPI Emma Malcolm is a 16 year old female who presents today for CC of hives/welts This started this morning. She is also having itching burning sensation. She denies any new products, clothing, lotions, no fever or ill feeling symptoms. and detergent. She recently started on nuvaring 10 days ago Symptoms are worsened by nothing She has tried an ice pack Risk factors not known. PMH seasonal allergis BP 102/70 Pulse 106 Temp 36.9 ?C (98.4 ?F) (Left Tympanic) Resp 16 Wt 50.1 kg (110 lb 6.4 oz) ALLERGIES Allergen Reactions - Penicillins Swelling Pt is allergic to all Cillins ACTIVE PROBLEM LIST Lgi Bleed Family History Problem Relation Age of Onset - Thyroid Mother hypo in 2002 - other Mother glasses - Thyroid Maternal Grandmother hyop - other Father glasses for reading and driving - No Ocular Disease Sister - No Ocular Disease Maternal Grandfather - No Ocular Disease Paternal Grandmother - Cancer Paternal Grandfather - other Other Retinitis pigmentosis - other Maternal Uncle Retinitis pigmentosis - other Paternal Aunt High myopia no dx known/High myopia no dx known - other Other High myopia no dx known/High myopia no dx known Social History Marital status: Single Spouse name: Years of education: Number of children: Occupational History Occupation Employer Comment student Social History Main Topics Smoking status: Current Every Day Smoker Packs/day: 0.50 Years: 1.00 Types: Cigarettes Smokeless tobacco: Never Used Comment: 4-5 cigarettes per day Alcohol use: No Drug use: No Sexual activity: No Review of Systems Constitutional: Negative for chills, fever and malaise/fatigue. Genitourinary: Negative for dysuria. Musculoskeletal: Negative for joint pain and myalgias. Skin: Negative for rash. Welts on left back side hip and buttock Neurological: Negative for headaches. Objective Physical Exam Constitutional: She is oriented to person, place, and time and well-developed, well-nourished, and in no distress. No distress. HENT: Head: Normocephalic and atraumatic. Eyes: Conjunctivae and EOM are normal. Pupils are equal, round, and reactive to light. Neck: Normal range of motion. Neck supple. Pulmonary/Chest: Effort normal. Neurological: She is alert and oriented to person, place, and time. Skin: Skin is warm and dry. Rash noted. Rash is urticarial. There is erythema. Psychiatric: Affect normal. Nursing note and vitals reviewed. ASSESSMENT/PLAN: 1. Hives - ICD9: 708.9, ICD10: L50.9 - Likely viral or allergic etiology discussed with patient - Treatment with antihistamine- Zyrtec 10mg po QD and Benadryl OTC - 25 mg - 50 mg every 6 hours as needed - Anti itch therapy of OTC 1% Hydrocortisone cream and Calomine lotion recommended prn - Follow up if symptoms persist or worsen. Diagnosis and treatment plan were discussed and questions were answered to the patient's satisfaction. Pt acknowledged understanding of concepts and follow up plan. Specific signs and symptoms that would indicate the need for higher level of care were discussed in detail warranting prompt ER evaluation. La Clinton APRN.STEPHANIA Clinton APRN.CNP 10/03/2017 7:07 PM Signed ASSESSMENT/PLAN: 1. Hives - ICD9: 708.9, ICD10: L50.9 - Likely viral or allergic etiology discussed with patient - Treatment with antihistamine- Zyrtec 10mg po QD and Benadryl OTC - 25 mg - 50 mg every 6 hours as needed - Anti itch therapy of OTC 1% Hydrocortisone cream and Calomine lotion recommended prn - Follow up if symptoms persist or worsen. Referring Provider: SELF [[id number]] Allergies As of Date: 10/03/2017 Noted Allergy Reaction PENICILLINS 11/14/2005 7 - Swelling Comments: Pt is allergic to all Cillins Date Reviewed: 10/03/2017 Reviewed by: Kim Coronado Ma - Fully Assessed Primary Visit Diagnosis:Hives [L50.9] Prescriptions as of 10/03/2017 Sig: FLUDROCORTISONE 0.1 MG TABLET Take 0.1 mg by mouth. NUVARING 0.12 MG -0.015 MG/24* DOXYCYCLINE MONOHYDRATE 100 M* Take 1 capsule by mouth twice* FLUTICASONE 50 MCG/ACTUATION * Use 2 Sprays in each nostril * CITALOPRAM 10 MG TABLET Take 10 mg by mouth once andrei* HYDROCORTISONE ACETATE 25 MG * 1 Suppository by RECTAL route* HYDROCORTISONE ACETATE 25 MG * 1 Suppository by RECTAL route* CITALOPRAM 20 MG TABLET Take 20 mg by mouth once andrei* MEDROXYPROGESTERONE 150 MG/ML* Inject 1 mL intramuscularly e* IBUPROFEN ORAL Take by mouth as needed. Problem List As Of Date 10/03/2017 Noted Resolved LGI bleed [K92.2] INVALID FOR* Other instructions from your clinician: ASSESSMENT/PLAN: 1. Hives - ICD9: 708.9, ICD10: L50.9 - Likely viral or allergic etiology discussed with patient - Treatment with antihistamine- Zyrtec 10mg po QD and Benadryl OTC - 25 mg - 50 mg every 6 hours as needed - Anti itch therapy of OTC 1% Hydrocortisone cream and Calomine lotion recommended prn - Follow up if symptoms persist or worsen. Encounter Status:Closed by LA CLINTON CNP on 10/03/17 PROGRESS NOTE Observed: 10/03/2017 Status: COMPLETED Source: [place] 1:00 PM [facility] REPOSITORY We had the pleasure of seeing Emma Malcolm in the [facility] at [facility] on October 03, 2017. As you know, Emma is a 16 y.o. female seen in evaluation for dizziness. She was last seen on July 04, 2017. Emma notes continued and unchanged symptoms of intermittent dizziness occurring approximately once per week. There has been no additional syncope since her last episode of 2015 and no chest pain, palpitations, or shortness of breath. Emma has not started the prescribed Florinef as she forgot to take it. She reports consistently drinking at least 80 ounces of fluid daily. Past medical history was reviewed and is significant for anxiety. Current medications are Nuvaring There is an allergy to penicillin which causes hives. On review of systems, 10 of 14 systems were reviewed and were negative other than noted above. Family history was reviewed and is negative for congenital heart disease, premature coronary artery disease, and sudden . On review of social history Emma lives with her family in [place], [place]. Physical exam showed: Vitals: Height: 158.9 cm, 25 %ile (Z= -0.67) based on CDC 2-20 Years [id number] data using vitals from 10/03/2017. Weight - Scale: 50.2 kg, 19 %ile (Z= -0.89) based on CDC 2-20 Years [id number] data using vitals from 10/03/2017. Heart rate was 85 beats per minute, respiratory rate was 17 breaths per minute, and blood pressure was 116/65 mmHg. In general, Emma is acyanotic, well developed, well nourished, and in no acute distress. HEENT exam revealed that mucous membranes are moist. There is no thyromegaly or cervical lymphadenopathy. Respirations are comfortable. There is no use of accessory muscles. There are no retractions. Auscultation reveals good air movement bilaterally without wheezes, rales, or rhonchi. On palpation of the precordium, there are no lifts, heaves, or thrills. Auscultation reveals regular rate and rhythm with a normal S1 and physiologically split S2. There is no ejection click. There is no murmur, gallop, or rub. Radial and posterior tibial pulses are 2+, with no delay. Abdomen is soft, non-tender, and non- distended. There is no abdominal bruit. Liver is not palpable. Spleen is not palpable. Extremity exam reveals no cyanosis, clubbing, or edema. Extremities are warm and well perfused. Neurologic exam is grossly intact. There are no rashes or bruises on skin exam. A 12-lead EKG performed today that I personally reviewed is normal with sinus rhythm and a ventricular rate of 85, SC interval of 165 msec, QRS duration of 109 msec, QTc of 424 msec, QRS axis of +99 degrees, no atrial enlargement, no ventricular hypertrophy, and no ST/T changes. The event monitor was returned today with no transmissions sent per patient report. DIAGNOSES: 1. Vasovagal dizziness/syncope. A. Normal EKG. B. Prior normal echocardiogram (August 04, 2015). 2. Palpitations. ASSESSMENT: Emma is a 16 y.o. female with symptoms most consistent with unchanged vasovagal dizziness. Once again, we will trial Florinef for improvement of her symptoms. RECOMMENDATIONS: 1. Continue primary medical care as directed. 2. SBE prophylaxis is not indicated. Begin Florinef 0.1 mg daily. 3. No activity restrictions from a cardiovascular perspective. 4. Continue to drink a minimum of 80-100 ounces of caffeine free fluid daily. 5. No scheduled follow-up is recommended at this time. Should Florinef improve symptoms, we will plan to see Emma in follow-up in 6 months. EMERGENCY DEPARTMENT Observed: 08/09/2017 Status: F Source: [place] SUMMARY 8:21 AM [facility] Medical Records Department [address] [place] [address] Emergency Department Summary 08/04/17 2333 MR#: [id number] Acct: [id number] Name: EMMA MALCOLM Rep #: [id number] : 2000 16 From: Victoriano Grady DO PCP: Garry Izaguirre MD Status: DEP ER - ER Visit Summary Date of Service: 08/04/17 Chief Complaint: Pelvic pain History of Present Illness: The patient is a 16 F who presents with left-sided pelvic pain. This began this afternoon. States is very similar to when she has had ovarian cyst. She had been seen Dr. Bobo for her cyst until they stopped giving her Depakote she has been receiving DepoCyt her primary care doctor. She has not had any recent ultrasounds. No vomiting diarrhea. No fevers. No vaginal discharge. Physical Examination: Afebrile vital signs are stable Gen: Well-nourished well-developed Head: Normocephalic atraumatic Eyes: Perrl EOMI ENT: TMs clear no rhinorrhea moist mucous membranes Neck: Supple no lymphadenopathy no JVD nontender CVS: Regular rate rhythm no murmurs normal S1-S2 Respiratory: No distress clear to auscultation bilaterally chest nontender Abdomen: Soft mild left lower pelvic tenderness palpation without guarding or rebound nondistended normal bowel sounds no masses Back: Nontender Extremity: Nontender no edema Skin: Normal color no rash Neuro: alert orientated 3 CN II-XII intact normal strength sensation reflexes gait cerebellar Psych: Normal affect normal mood Test Results: Urinalysis and test are negative. CT of the abdomen pelvis demonstrate a 4.3 cm pelvic cyst. Emergency Department Course and Treatment: Patient received a dose of Toradol. The patient will need to follow-up with Dr. Bobo. Impression: 1. 4.3 cm pelvic cyst on the left This note was generated with [employer] dictation software. It may contain incorrect words, spelling, and punctuation that were not noted in review of the chart prior to signing ED Disposition - Plan for ED Patient: Disposition: Home or Assisted Living Chief Complaint: Abd Pain Instructions: ED Cyst Ovarian Prescriptions: Hydrocodone Bitart/Apap 5-325 [May 5/325] 1 tab PO Q6H PRN PRN 3 Days #10 tab PRN Reason: Pain Referrals: Mekhi Bobo [STAFF PHYSICIAN] - As soon as possible What to do if you have Problems For any increased pain, shortness of breath, bleeding, nausea or vomiting, chest pain, or any unexpected problems, contact your Primary Care Provider. Call [facility] ([phone]) or report to the closest Emergency Room. Call 911 if necessary. 08/09/17 0821 <Electronically signed by Victoriano Grady DO> Date Victoriano Grady DO Cosigner Signature (If Indicated): Date CC: Garry Izaguirre MD ,URINE Collected: 08/04/2017 Status: F Source: [place] 9:30 PM [facility] Order Comment: Order Date: 08/04/17 TYPE CODE TESTS RESULT OUT OF REFERENCE UNITS RANGE LAB L400.8000 Negative Normal HCGUQUAL Negative Result Comment: Very dilute urine specimens, as indicated by a low specific gravity, may not contain traveling representative levels of hCG. If is still suspected, a first morning urine specimen should be collected 48 hours later and tested. Performed By: #### L400.7600 #### [facility] [address], [address] URINALYSIS, COMPLETE Collected: 08/04/2017 Status: F Source: [place] 9:30 PM [facility] Order Comment: Order Date: 08/04/17 How was Urine Obtained? COMMUNITY RELATIONS DIRECTOR TO SPECIFY TYPE CODE TESTS RESULT OUT OF RANGE REFERENCE UNITS LAB L400.3000 Yellow COLOR Normal Yellow LAB L400.3050 Clear Normal CLARITY Clear LAB L400.3200 Normal mg/dl Normal GLUCOSE, UR Normal LAB L400.3300 Negative mg/dL Normal BILIRUBIN URINE Negative LAB L400.3400 Negative mg/dl High 5 KETONE UR LAB L400.3465 1.002-1.030 Normal SP.GR. DIPSTX 1.020 LAB L400.3550 5.0 - 8.0 pH UR Normal 6.0 LAB L400.3600 Negative mg/dl PROT Normal DIPSTX Negative LAB L400.3700 Normal mg/dl High 1 UROBILI LAB L400.3750 Negative Normal NITRITE UR Negative LAB L400.3780 Negative /ul Normal OCCULT BLOOD-UR Negative LAB L400.3800 Negative /ul High LEUK 25 ESTERASE LAB L400.4050 0-5 /hpf WBC Normal 0-5 SEEN LAB L400.4100 0-5 /hpf Normal RBC-UA 0-5 SEEN LAB L400.4150 5-10 /hpf SQUAM Normal EPI 0-5 SEEN LAB L400.4300 None Seen /hpf 0 Normal BACTERIA SEEN LAB L400.4350 <or=2+ /hpf 2+ Normal MUCUS, URINE Performed By: #### L400.0001 #### [facility] [address] [facility] [place], [address] ABDOMEN/PELVIS W IV CONT Observed: 08/04/2017 Status: F Source: [facility] 9:18 PM [facility] Imaging Services [address] [place] [address] Abdomen/Pelvis W IV Cont ONLY MR#: [id number] Acct: [id number] Name: EMMA MALCOLM Edie Rep #: [id number] : 2000 F 16 From: Bill Butler MD PCP: Garry Izaguirre MD Status: REG ER Study: Abdomen/Pelvis W IV Cont ONLY Date of Exam: 08/04/17 Exam# [id number] Ordering Dr: Victoriano Grady DO STUDY: CT ABDOMEN AND PELVIS WITH CONTRAST REASON FOR EXAM: Female, 16 years old. Abdominal pain. RADIATION DOSAGE (If Supplied By Facility): CTDIvol = ( 10.87 ) mGy, DLP = ( 249.31 ) mGycm TECHNIQUE: Transaxial images were obtained from the dome of the diaphragm to the symphysis pubis without oral contrast. 100ML ml of Isovue 300 contrast was administered. Sagittal and coronal images were reconstructed. Individualized dose optimization techniques were used for this CT. COMPARISON: 01/12/2010. FINDINGS: The visualized lung bases are unremarkable. The visualized portions of the heart are within normal limits. Normal liver. Normal gallbladder and extrahepatic biliary system. Normal spleen. Normal pancreas. Normal bilateral adrenal glands. Normal right kidney. Normal left kidney. Evaluation of the GI tract is limited by absence of oral contrast. Cannot exclude stomach wall thickening. No dilated loops of bowel or evidence for obstruction. Cannot exclude segmental thickening of the bush of the small or large bowel. Cannot exclude enteritis or colitis. Moderate diffuse fecal retention. There has been appendectomy. Normal abdominal aorta. Normal inferior vena cava. Normal retroperitoneum. Normal urinary bladder. Normal visualized uterus. There is a 4.6 cm cystic mass in the left pelvis for which further evaluation with pelvic ultrasound is recommended. Normal abdominal wall. Normal osseous structures. CT/Abdomen/Pelvis W IV Cont ONLY IMPRESSION: There is a 4.6 cm cystic mass in the left pelvis for which further evaluation with pelvic ultrasound is recommended. No other definite abnormalities. Electronically Signed: Bill Butler MD at 23:13 EDT , Service support , CC: Victoriano Grady DO; Garry Izaguirre MD Tape Weaver: Signed PROGRESS NOTE Observed: 07/04/2017 Status: COMPLETED Source: [place] 2:30 PM [facility] REPOSITORY We had the pleasure of seeing Emma Malcolm in the [facility] at [facility] on July 04, 2017. As you know, Emma is a 16 y.o. female seen in evaluation for dizziness. She was last seen by my colleague, Dr. Lafleur, on August 04, 2015. Emma notes continued and unchanged symptoms of intermittent dizziness occurring approximately once per week. Symptoms occur randomly and are associated with feelings of rapid heart rate, blurry vision, flushing, and nausea. There has been no chest pain or shortness of breath. There has been no recent syncope with the only syncopal episode occurring in 2016. Emma drinks a minimum of 100 ounces of caffeine free fluid daily. Past medical history was reviewed and is significant for anxiety. Current medications are Celexa, ibuprofen, and Depo-Provera. There is an allergy to penicillin which causes hives. On review of systems, 10 of 14 systems were reviewed and were negative other than noted above. Family history was reviewed and is negative for congenital heart disease, premature coronary artery disease, and sudden . On review of social history Emma lives with her family in [place], [place]. Physical exam showed: Vitals: Height: 158.9 cm, 25 %ile (Z= -0.66) based on [facility] 2-20 Years [id number] data using vitals from 07/04/2017. Weight - Scale: 49.3 kg, 16 %ile (Z= -0.99) based on [facility] 2-20 Years [id number] data using vitals from 07/04/2017. Heart rate was 90 beats per minute, respiratory rate was 18 breaths per minute, and blood pressure was 127/79 mmHg. In general, Emma is acyanotic, well developed, well nourished, and in no acute distress. HEENT exam revealed that mucous membranes are moist. There is no thyromegaly or cervical lymphadenopathy. Respirations are comfortable. There is no use of accessory muscles. There are no retractions. Auscultation reveals good air movement bilaterally without wheezes, rales, or rhonchi. On palpation of the precordium, there are no lifts, heaves, or thrills. Auscultation reveals regular rate and rhythm with a normal S1 and physiologically split S2. There is no ejection click. There is no murmur, gallop, or rub. Radial and posterior tibial pulses are 2+, with no delay. Abdomen is soft, non-tender, and non- distended. There is no abdominal bruit. Liver is not palpable. Spleen is not palpable. Extremity exam reveals no cyanosis, clubbing, or edema. Extremities are warm and well perfused. Neurologic exam is grossly intact. There are no rashes or bruises on skin exam. A 12-lead EKG performed today that I personally reviewed is normal with sinus rhythm and a ventricular rate of 90, SC interval of 165 msec, QRS duration of 97 msec, QTc of 432 msec, QRS axis of +111 degrees, no atrial enlargement, no ventricular hypertrophy, and no ST/T changes. DIAGNOSES: 1. Vasovagal dizziness/syncope. A. Normal EKG. B. Prior normal echocardiogram (August 04, 2015). 2. Palpitations. ASSESSMENT: Emma is a 16 y.o. female with symptoms most consistent with vasovagal dizziness. Evaluation has demonstrated a normal cardiac examination, EKG, and prior echocardiogram. We will further evaluate her associated palpitations with an event monitor. Given the chronic and unchanged symptoms, we will trial fludrocortisone for symptom relief. RECOMMENDATIONS: 1. Continue primary medical care as directed. 2. SBE prophylaxis is not indicated. Begin Florinef 0.1 mg daily. 3. No activity restrictions from a cardiovascular perspective. 4. Continue to drink a minimum of 80-100 ounces of caffeine free fluid daily. 5. We will plan to see Emma in follow-up in 3 months for repeat evaluation. CBC W/DIFF, AUTOMATED Collected: 06/13/2017 Status: F Source: [place] 4:20 PM [facility] [place] TYPE CODE TESTS RESULT OUT OF RANGE REFERENCE UNITS LAB L100.1000 4.4-11.0 K/mm3 Normal WBC 7.3 LAB L100.1200 4.2-5.4 M/mm3 Normal RBC 5.17 LAB L100.1300 12.0-15.0 g/dl Normal HGB 14.8 LAB L100.1400 37-47 % Normal HCT 45.4 LAB L100.1500 81-99 fL Normal MCV 87.8 LAB L100.1600 27.0-32.0 pg Normal MCH 28.6 LAB L100.1700 32-36 g/gl Normal MCHC 32.6 LAB L100.1810 11.6-14.6 % Normal RDW CV 13.5 LAB L100.1820 35.1-43.9 fl Normal RDW SD 42.7 LAB L100.1900 150-450 K/mm3 Normal PLT 179 LAB L100.2000 6.2-12.0 fl Normal MPV 9.4 LAB L100.2100 47-70 % Low NEUT% 23.8 LAB L100.2200 19-41 % High LY% 58.3 LAB L100.2300 0-10 % High MONO% 14.9 LAB L100.2400 0-5 % Normal EO% 0.8 LAB L100.2500 0-1 % High BASO% 1.8 LAB L100.2550 0.0-0.9 % Normal IM GRAN % 0.400 Result Comment: IG% - Immature Granulocytes (promyelocytes, myelocytes and metamyelocytes) > 1% indicates that a LEFT SHIFT is Present. LAB L100.2620 2.0-7.7 X10 3/uL Low Absolute Neut 1.8 LAB L100.2720 0.83-4.51 X10 3/ul Normal Absolute Lymph 4.28 Performed By: #### L100.0100 #### [facility] [address] [place], [place], [address] BASIC METABOLIC Collected: 06/04/2017 Status: F Source: [place] PROFILE (BMP) 2:02 PM [facility] [place] TYPE CODE TESTS RESULT OUT OF RANGE REFERENCE UNITS LAB L501.0100 70-110 mg/dL Normal GLU 83 LAB L501.1000 7-18 mg/dL Normal BUN 7 LAB L501.1100 0.55-1.02 mg/dL Normal 0.86 CREAT,SERUM Result Comment: The validity of the calculated GFR AND GFRAA in patients over 70 years has not been determined. Clinical correlation is essential. LAB L501.1110 >60 mL/min Normal EST GFR 91 Result Comment: Non- GFR Calc LAB L501.1115 >60 mL/min Normal EST GFR - AA 111 Result Comment: GFR Calc LAB L501.1300 10-20 RATIO Low BUN/CRE 8.2 LAB L501.2200 8.5-10.1 mg/dL Normal CA 9.2 LAB L501.5300 136-145 mmol/L Normal NA 137 LAB L501.5600 3.5-5.1 mmol/L Normal K 3.8 LAB L501.5900 98-107 mmol/L Normal CL 106 LAB L501.6100 21.0-32.0 mmol/L Low CO2 20.0 LAB L501.6200 5-15 Normal GAP 11 Performed By: #### L500.2500, L501.9520 #### [facility] [address], [address] THYROID STIM HORMONE Collected: 06/04/2017 Status: F Source: [place] (TSH) 2:02 PM [facility] [place] TYPE CODE TESTS RESULT OUT OF RANGE REFERENCE UNITS LAB L501.9520 0.358-3.74 uIU/mL Normal TSH 1.95 Performed By: #### L500.2500, L501.9520 #### [facility] [address] [place], [address] CBC W/DIFF, AUTOMATED Collected: 06/04/2017 Status: C Source: [place] 2:02 PM [facility] [place] TYPE CODE TESTS RESULT OUT OF RANGE REFERENCE UNITS LAB L100.1000 4.4-11.0 K/mm3 High WBC 11.9 LAB L100.1200 4.2-5.4 M/mm3 Normal RBC 5.32 LAB L100.1300 12.0-15.0 g/dl High HGB 15.5 LAB L100.1400 37-47 % Normal HCT 46.6 LAB L100.1500 81-99 fL Normal MCV 87.6 LAB L100.1600 27.0-32.0 pg Normal MCH 29.1 LAB L100.1700 32-36 g/gl Normal MCHC 33.3 LAB L100.1810 11.6-14.6 % Normal RDW CV 13.1 LAB L100.1820 35.1-43.9 fl Normal RDW SD 42.3 LAB L100.1900 150-450 K/mm3 Low PLT 99 LAB L100.2000 6.2-12.0 fl Normal MPV 10.3 LAB L100.2100 47-70 % Low NEUT% 21.5 LAB L100.2200 19-41 % High LY% 53.6 LAB L100.2300 0-10 % High MONO% 19.2 LAB L100.2400 0-5 % Normal EO% 0.2 LAB L100.2500 0-1 % High BASO% 5.3 LAB L100.2550 0.0-0.9 % Normal IM GRAN % 0.200 Result Comment: IG% - Immature Granulocytes (promyelocytes, myelocytes and metamyelocytes) > 1% indicates that a LEFT SHIFT is Present. LAB L100.2620 2.0-7.7 X10 3/uL Normal Absolute Neut 2.6 LAB L100.2720 0.83-4.51 X10 3/ul High Absolute Lymph 6.35 LAB L100.4500 Normal SMEAR COMMENT SEE COMMENTS Result Comment: MONOCYTOSIS NOTED LYMPHOCYTOSIS NOTED LAB L100.4800 Normal RARE TOXIC GRAN LAB L100.5500 ADEQ Normal MOD PLT EST DEC LAB L100.7300 Normal RARE ANISO LAB L100.9900 Normal PATH REV Reviewed Result Comment: Leukocytosis and lymphocytosis. Reactive lymphocytes are noted. Mild Thrombocytopenia. Mariano Gleason M.D. 06/05/17 AMENDED REPORT 06/05/17 1641 PATH REV previously reported as: September sander Performed By: #### L100.0100 #### [facility] [address] [place], [address] PROGRESS NOTE Observed: 06/04/2017 Status: COMPLETED Source: MARGOT 1:00 PM [facility] REPOSITORY Patient ID: Emma Malcolm is a 16 y.o. female. Her chief complaint(s) include: Loss of Consciousness . Assessment: 1. Near syncope 2. Streptococcal sore throat 3. Left acute suppurative otitis media 4. URI, acute Plan: Emma was seen today for loss of consciousness. Diagnoses and all orders for this visit: Near syncope - AMB Referral To Cardiology - Complete Blood Count with Diff (Lab Collect); Future - Basic Metabolic Panel (Lab Collect); Future - TSH (Lab Collect); Future Streptococcal sore throat - Discontinue: cefdinir (OMNICEF) 300 MG capsule; Take 1 Cap (300 mg) by mouth 2 times daily for 10 days - cefdinir (OMNICEF) 300 MG capsule; Take 1 Cap (300 mg) by mouth 2 times daily for 10 days Left acute suppurative otitis media URI, acute Symptomatic treatment for uri symptoms. To monitor closely for worsening symptoms/concerns. Return for Well Visit and as needed. Subjective: She is unaccompanied. Loss of Consciousness This problem is new. The duration has been 3 years. The onset has been gradual (usually will start with feeling of lightheadness and vision gets tunnel). The course is decreasing (rare episodes). The patient's symptoms have included fatigue, congestion (currently has uri symptoms but norrmally not associated with lightheadedness.), rhinorrhea and headaches (with the episodes but otherwise rare headache). The patient's symptoms have included no fever, no fussiness, no sore throat, no cough, no wheezing, no bilateral ear pain, no abdominal pain, no diarrhea and no vomiting. The location of symptoms have included the head. Exacerbated by: unsure---denies any problems associated with eating/drinking. There have been no previous interventions. Review of Systems Cardiovascular: Positive for syncope. Objective: Physical Exam Constitutional: She appears well. She is active. No distress. HENT: Head: Atraumatic. Right Ear: Tympanic membrane normal. Left Ear: Tympanic membrane is erythematous (with fluid). Nose: Nasal discharge (yellow nasal drainage) present. Mouth/Throat: Throat is red (with palatal petichiae). Mucous membranes are moist. Eyes: Conjunctivae are normal. Neck: Neck adenopathy (tender anterior cervical lymphadenopathy) present. Cardiovascular: Normal rate and regular rhythm. No murmur heard. Pulmonary/Chest: Breath sounds normal. There is normal air entry. Neurological: She is alert. Vitals reviewed: Blood pressure 111/54, pulse (!) 118, temperature 36.1 C (97 F), weight 48.6 kg. ALLERGIES ALLERGIES DATE TYPE / CODE NAME / CODE REACTION SEVERITY SOURCE 04/02/2018 Drug Penicillins/[id number] Unknown Unknown Mobile Allergy/416 0476(RXNORM) [facility] 561632([facility] ED CT) Repository 01/12/2011 Drug PENICILLINS [facility] Class/34289 Hospital 1003(SNOMED Repository CT) 11/14/2005 Drug PENICILLINS [facility] Class/22376 [address] [place] 1003(SNOMED Repository CT) ENCOUNTERS ENCOUNTERS ADMIT/DISCHARGE ACCOUNT ADMITTING ENCOUNTER LOCATION SOURCE NUMBER CLASS 04/02/2018/04/02/20 [id number] Emergency [address] ing:ED Repository 01/14/2018/01/15/20 [id number] Emergency [address] ing:ED Repository 11/09/2017/11/11/19 [id number] Emergency [address] ing:ED Repository 10/03/2017/10/05/19 [id number] Ambulatory [address] Repository 10/03/2017/10/04/19 [id number] Ambulatory Building:[address] Repository 08/04/2017/08/05/19 [id number] Emergency [address] ing:ED Repository 08/01/2017/08/02/19 [id number] Ambulatory Building:[address] Repository 07/04/2017/07/04/19 [id number] Ambulatory Building:[address] Repository 06/22/2017/06/22/19 [id number] Ambulatory Building:[address] Repository 06/13/2017 [id number] Ambulatory [facility] ing:MTLAB Repository 06/04/2017 [id number] Ambulatory [facility] ing:MTLAB Repository 06/04/2017/06/04/19 [id number] Ambulatory Building:[address] Repository PAYERS PAYERS ENCOUNTER GUARANTOR PAYER SUBSCRIBER SOURCE 04/02/2018 EMMA Reyes [facility] Gerardo [id number] Insurance:GPATPA *NOT SOLOMONDOB: [facility] [address] CONTRACTED*Policy [id number] Number: Repository [id number]: 330 [id number] [phone] (HP) Date:[id number] [address]HO: 04/02/2018 Secondary NOT GIVENUNK Gerardo Insurance:SELF PAY [facility] Number: Effective Repository Date:2018-04-02 01/14/2018 EMMA Reyes JOSE MANUEL [id number] Insurance:GPATPA *NOT SOLOMONDOB: [facility]*Policy [id number] Number: Repository [address]Adx: [phone] [id number] [phone] (HP) Date:3111-44-03FI [address], [place] [address]WS: 01/14/2018 Secondary NOT GIVENUNK Mobile Insurance:SELF PAY [facility] Number: Effective Repository Date:2018-01-14 11/09/2017 EMMA Irizarry Primary AUGUST M Gerardo [id number] Insurance:GPATPA *NOT SOLOMONDOB: [facility] CONTRACTED*Policy [id number] Number: Repository [address]Vwk: 330 [id number] [phone] (HP) Date:5688-69-92WW [address], [place] [address]KS: 11/09/2017 Secondary NOT GIVENUNK Mobile Insurance:SELF PAY [facility] Number: Effective Repository Date:2017-11-09 10/03/2017 EMMA RUTHERFORDB: Primary AUGUST SOLOMONDOB: [place] Insurance:GENERIC [id number] [address] Number: [place] Repository [address]Mmd: [phone] [id number] [phone] (HP) Date: 08/04/2017 EMMA Irizarry Primary AUGUST SOLOMONDOB: Gerardo [id number] Insurance:GPATPA *NOT [id number]*Policy [place] Number: Repository [address]Gbz: 330 [id number] [phone] (HP) Date:3516-53-62VC [address], [place] [address]TE: 08/04/2017 Secondary NOT GIVENUNK Gerardo Insurance:SELF PAY [facility] Number: Effective Repository Date:2017-08-04 08/01/2017 EMMA MALCOLMDOB: Primary AUGUST SOLOMONDOB: [place] Insurance:GENERIC [id number] [place], [place] Number: [place] Repository [address]Wld: 330 [id number] [id number] [phone] (HP) Date: 07/04/2017 EMMA KRISHB: Primary AUGUST SOLOMONDOB: [place] Insurance:GENERIC [id number] [place], [place] Number: [place] Repository [address]Imf: [phone] [id number] [phone] (HP) Date: 06/22/2017 EMMA RUTHERFORDB: Primary AUGUST SOLOMONDOB: [place] Insurance:GENERIC [id number] [place], [place] Number: [place] Repository [address]Qnd: 330 [id number] [phone] (HP) Date: 06/13/2017 EMMA VALLE Primary NOT GIVENUNK Mobile [facility] Insurance:SELF PAY [facility] [address]Mlr: ([phone]) Number: Effective Repository [phone] (HP) Date:2017-06-13 06/04/2017 EMMA LEA0 Primary AUGUST SOLOMONDOB: Gerardo [facility] Insurance:GPATPA *NOT [id number] [place] CONTRACTED*[facility] [address]Ihr: (330) Number: Repository [phone] (HP) [id number] Date:[id number], [place] [address]FP: 06/04/2017 Secondary NOT GIVENUNK Mobile Insurance:SELF PAY [facility] Number: Effective Repository Date:2017-06-04 06/04/2017 EMMA RUTHERFORDB: Primary AUGUST SOLOMONDOB: [place] Insurance:ANTHEMPolic [id number] [facility] Number: [place], [place] [id number] [place], [place] Repository [address]Rjo: 330) Date: [phone] ()
== END 2018-04-02 02:19 | disposition home or self-care (01) ==
LOC: ED 02:02
PROVIDERS: Emergency Provider Emergency Medicine; Family Provider Pediatrics; PCP Pediatrics
DX: S01.302A Unspecified open wound of left ear, initial encounter (principal); S01.301A Unspecified open wound of right ear, initial encounter; X58.XXXA Exposure to other specified factors, initial encounter; Y93.9 Activity, unspecified; Y92.9 Unspecified place or not applicable; Z72.0 Tobacco use
CPT/HCPCS: 99282

== ENCOUNTER 2018-04-28 21:48 | Emergency (ER) | payer OTHER, SELFPAY ==
[2018-04-28 21:49] VITALS: BP 109/70; PULSE 113; RESP 18; TEMP 36.5; O2SAT 100; BMI 20.1
--- NOTE | 2018-04-28 21:52 | RAD_ITS ---
STUDY: X-RAY - LEFT SHOULDER REASON FOR EXAM: Female, 17 years old. Trauma TECHNIQUE: 4 view(s) of the shoulder. COMPARISON: None. FINDINGS: Normal glenohumeral articulation. Normal acromioclavicular joint. Normal acromion. Normal humeral head and visualized proximal humerus. The soft tissue structures are unremarkable. Normal visualized pulmonary apex. RAD/Shoulder min 2 Views IMPRESSION: Normal x-ray examination of the shoulder. Electronically Signed: Alfonso Garcia MD at 22:19 EST , Service support ,
--- NOTE | 2018-04-28 21:55 | RAD_ITS ---
STUDY: X-RAY - LEFT ELBOW REASON FOR EXAM: Female, 17 years old. Trauma TECHNIQUE: 3 view(s) of the elbow. COMPARISON: None. FINDINGS: Normal visualized humerus, radius and ulna. Normal radiocapitellar and ulnotrochlear articulations. The soft tissue structures are unremarkable. RAD/Elbow min 3 Views IMPRESSION: Normal x-ray examination of the elbow. Electronically Signed: Alfonso Garcia MD at 22:18 EST , Service support ,
[2018-04-28 22:44] VITALS: PULSE 93; RESP 16; O2SAT 99
--- NOTE | 2018-04-28 23:01 | ED.DCSUM_ITS ---
- ER Visit Summary Date of Service: 04/28/18 Chief Complaint: Left arm pain History of Present Illness: The patient is a [address] Mallorie Caba. She is right-hand dominant. She reports that she had her dog on a leash and he got excited and pulled her left elbow into a door frame. She had a sharp pains 9 at 10 at worst and 410 currently. Is worsened by movement. Is relieved by rest. She is not taking anything for pain. Has any paresthesias distally. She denies any other injuries. Physical Examination: Vitals: Stable. Afebrile. Neck: No vertebral tenderness. Full ROM without difficulty. Cleared by NEXUS criteria. Back: No vertebral tenderness. General: A&O x 3. NAD. Cardiovascular exam: Regular rate and rhythm, no murmur, rub or gallop. Respiratory exam: Chest nontender. No crepitus. Clear to auscultation bilaterally. No wheezes or stridor. Abdominal exam: Soft, nontender, nondistended, normal bowel sounds. No pain in RUQ or LUQ specifically. No peritoneal signs. Extremity: Contusion and mild soft tissue swelling over the lateral portion of her elbow. Full range of motion by difficulty. This area is moderately tender to palpation. She is neurovascular intact distal this. She does have mild tenderness palpation over her left deltoid as well. Test Results: X-rays of her left elbow and shoulder are negative. Emergency Department Course and Treatment: Patient was treated with naproxen. She is resting comfortably. Treatment Plan: Patient be discharged instructions use naproxen and ice. Follow-up Dr. Mallorie Caba in 1 week if not improving. Return to the emergency department for any worsening symptoms. Disposition: To home in improved and stable condition. Impression: 1. Contusion left elbow. This note was generated with [employer] dictation software. It may contain incorrect words, spelling, and punctuation that were not noted in review of the chart prior to signing ED Disposition - Plan for ED Patient: Disposition: Home or Assisted Living Chief Complaint: Upper Extremity Injury Instructions: ED Contusion Upper Ext Prescriptions: Naproxen [Naprosyn] 500 mg PO BID #14 tablet Referrals: Mallorie Caba MD [Primary Care Provider] - 1 Week if not improving
[2018-04-28 23:29] VITALS: BP 108/60; PULSE 95; RESP 16; O2SAT 100
== END 2018-04-28 23:36 | disposition home or self-care (01) ==
PROVIDERS: Emergency Provider Emergency Medicine; Family Provider Pediatrics; PCP Pediatrics
DX: S50.02XA Contusion of left elbow, initial encounter (principal); W22.8XXA Striking against or struck by other objects, initial encounter; Y93.9 Activity, unspecified; Y92.9 Unspecified place or not applicable; F17.200 Nicotine dependence, unspecified, uncomplicated
CPT/HCPCS: 73030; 73080; 99282

== ENCOUNTER 2018-05-13 00:42 | Emergency (ER) | payer OTHER, SELFPAY ==
[2018-05-13 00:43] VITALS: BP 132/78; PULSE 89; RESP 20; TEMP 36.7; O2SAT 100; BMI 20.5
[2018-05-13 00:49] VITALS: BP 140/80; PULSE 85; RESP 14; O2SAT 98
[2018-05-13 01:31] LABS: Mucous, Urine 0 SEEN /hpf (<or=2+); Squamous Epithelial Cells - UA 0 SEEN /hpf (5-10)
[2018-05-13] MEDS: 0.9% Normal Saline 1,000 ML 1000 ML IV (01:31)
[2018-05-13] MEDS: Ketorolac 30 MG/ML Syringe IV (01:31)
[2018-05-13] MEDS: Ondansetron 4 MG/2 ML Vial IV (01:31)
[2018-05-13 01:39] LABS: Absolute Neutrophil Count 7.5 X10^3/uL (2.0-7.7); Basophil# 0.02 X10^3/uL; Basophil% 0.2 % (0-1); Eosinophils% 0.9 % (0-5); Hematocrit 41.3 % (37-47); Hemoglobin 13.8 g/dl (12.0-15.0); Lymphocyte % 24.4 % (19-41); Mean Corp Hgb Conc 33.4 g/gl (32-36); Mean Corpuscular Hgb 29.5 pg (27.0-32.0); Mean Corpuscular Volume 88.2 fL (81-99); Mean Platelet Vol. 9.7 fl (6.2-12.0); Monocyte# 1.04 X10^3/uL; Monocyte% 9.1 % (0-10); Neutrophil # 7.51 X10^3/uL (2.7-7.7); Neutrophil % 65.2 % (47-70); Platelet Count 215 K/mm3 (150-450); RBC Distribution Width CV 12.7 % (11.6-14.6); RBC Distribution Width SD 40.3 fl (35.1-43.9); Red Blood Count 4.68 M/mm3 (4.2-5.4); White Blood Count 11.5 K/mm3 (4.4-11.0)
[2018-05-13 01:40] LABS: POSITIVE COUNT NO; POSITIVE DIFFERENTIAL NO; POSITIVE MORPHOLOGY NO
[2018-05-13 01:43] LABS: Color, Urine Yellow (Yellow); Glucose, Dipstick Normal (Normal); Ketone-Dipstick 15 mg/dl (Negative); Leukocyte Esterase-Dipstick 500 /ul (Negative); Nitrite-Dipstick Positive (Negative); Occult Blood-Urine 250 /ul (Negative); Protein-Dipstick 100 mg/dl (Negative); Urine Bilirubin Dipstick Negative (Negative); Urine Clarity Sl. Cloudy (Clear); Urine Urobilinogen Normal (Normal)
--- NOTE | 2018-05-13 01:45 | CT_ITS ---
STUDY: CT ABDOMEN AND PELVIS WITHOUT CONTRAST REASON FOR EXAM: Female, 17 years old. Right flank pain and right lower quadrant pain. Elevated white blood cell count. History of appendectomy. History of ovarian cysts. RADIATION DOSAGE (If Supplied By Facility): CTDIvol = ( 6.04 ) mGy, DLP = ( 291.55 ) mGycm TECHNIQUE: Transaxial images were obtained from the dome of the diaphragm to the symphysis pubis without oral contrast, and without intravenous contrast. Sagittal and coronal images were reconstructed. Individualized dose optimization techniques were used for this CT. COMPARISON: 08/04/2017. FINDINGS: The visualized lung bases are unremarkable. The visualized portions of the heart are within normal limits. Normal liver. There is probably mild mural thickening of the gallbladder, not reliably demonstrated in this noncontrast study.. There is no demonstrated bile duct dilatation. Normal spleen. Normal pancreas. Normal bilateral adrenal glands. Normal right kidney. Normal left kidney. Normal visualized stomach. Normal small intestine. Normal colon. The appendix is visualized and appears 5 normal. Normal abdominal aorta. Normal inferior vena cava. Normal retroperitoneum. There is apparent diffuse mural thickening of the urinary bladder which may be an artifact of nondistention or may represent cystitis. The ovaries are large bilaterally and there are bilateral ovarian cysts, which are not well delineated in this noncontrast exam. Largest cyst on the right measures approximately 3 cm and is were not demonstrated on previous study. There is an approximately 5.3 cm left ovarian cyst, which appears larger than it did on the previous study. Normal abdominal wall. Normal osseous structures. CT/Abdomen/Pelvis without Cont IMPRESSION: Suspected mild mural thickening of the gallbladder. If symptoms warrant, suggest follow-up gallbladder ultrasound. New right ovarian cysts. Larger left ovarian cyst. Apparent mural thickening of the urinary bladder may be an artifact of poor distention or may represent cystitis. Previous cholecystectomy. No demonstrated urinary calculi or hydronephrosis. No evidence for diverticulitis. Electronically Signed: Janak Alvarez MD at 2:53 EST , Service support ,
[2018-05-13 01:52] LABS: Red Blood Cells-Urine 50-100 SEEN /hpf (0-5)
[2018-05-13 01:53] LABS: Bacteria 2+ /hpf (None Seen); Internal QC Validated? YES +Cl - CLEAR BKGD; Pregnancy, Urine Negative Negative; White Blood Cells >100 SEEN /hpf (0-5)
[2018-05-13 01:55] LABS: Anion Gap 12 (5-15); BUN 10 mg/dL (7-18); Calcium,Total 9.1 mg/dL (8.5-10.1); Chloride 109 mmol/L (98-107); Creatinine, Serum 0.83 mg/dL (0.55-1.02); EST Glomerular Filtration Rate 94 mL/min (>60); Est Glom Filt Rate - Afr Amer 113 mL/min (>60); Estimated Creatinine Clearance 90.18 ml/min; Glucose 95 mg/dL (74-106); Sodium Level 141 mmol/L (136-145)
[2018-05-13 02:44] VITALS: BP 128/80; PULSE 80; RESP 15; O2SAT 98
--- NOTE | 2018-05-13 03:08 | ED.VISSUMM ---
- ER Visit Summary Date of Service: 05/13/18 Chief Complaint: Abdominal pain History of Present Illness: The patient is a 17 F who presents with flank and abdominal pain. She has a history of chronic back pain and spasms for a few years but states that it was worse tonight beginning about an hour ago. She also developed right lower quadrant abdominal pain. She rates her pain as severe. She reports nausea without vomiting. She also has developed dysuria urinary frequency urgency and believes there may have been some blood in her urine. No vaginal bleeding. Her last menstrual period ended on [place]. No fevers. She has had an appendectomy. Physical Examination: Afebrile vitals unremarkable Moist mucous membranes Heart regular rate and rhythm Lungs clear Right CVA tenderness Diffuse abdominal tenderness which is greatest in the right lower abdomen. No guarding no rebound no Miller's sign. Test Results: Labs notable for white blood cell count 11.5. Potassium is 3.0. Urinalysis shows 500 leukocyte esterase, positive nitrates, greater than 100 WBCs, 50-100 RBCs and 2+ bacteria. is negative. CT of the flank shows multiple findings including suspected mild mural thickening of the gallbladder, new right ovarian cyst, left ovarian cyst, mural thickening of the bladder, no ureterolithiasis. Emergency Department Course and Treatment: Patient's initial presentation was concerning for possible ureterolithiasis. She was treated here with IV fluids Toradol. She feels much better and her pain is resolved on reevaluation. CT findings as above. I do not believe this is cholecystitis. She has no right upper abdominal pain I believe her symptoms are explained on her urine results by a urinary tract infection. She was advised to follow-up with her physician for possible follow-up right upper quadrant ultrasound. at this point she is not febrile tachycardic or vomiting. Her symptoms are well controlled. I do believe she can be treated as an outpatient I do not believe she requires hospitalization for IV based on current presentation. Patient was prescribed Bactrim. She understands to return for new or worsening symptoms and was instructed on specific signs and symptoms to monitor for. She was given potassium here. She was discharged. Treatment Plan: [] Disposition: Discharge Impression: UTI Hypokalemia This note was generated with [employer] dictation software. It may contain incorrect words, spelling, and punctuation that were not noted in review of the chart prior to signing ED Disposition - Plan for ED Patient: Chief Complaint: Flank Pain Referrals: Mallorie Caba MD [Primary Care Provider] -
--- NOTE | 2018-05-13 03:12 | ED.DEP ---
ED Disposition - Plan for ED Patient: Chief Complaint: Flank Pain Instructions: ED Kidney Infec Female, ED Diet High Potassium Prescriptions: Smz/Tmp Ds [Bactrim Ds] 1 tab PO BID #14 tab Referrals: Mallorie Caba MD [Primary Care Provider] -
[2018-05-13] MEDS: Smz/Tmp Ds Tablet 1 TABLET PO (03:23)
[2018-05-13 04:00] VITALS: BP 104/47; PULSE 88; RESP 16; O2SAT 98
== END 2018-05-13 03:55 | disposition home or self-care (01) ==
LOC: ED 01:29
PROVIDERS: Emergency Provider Emergency Medicine; Family Provider Pediatrics; PCP Pediatrics
DX: N39.0 Urinary tract infection, site not specified (principal); E87.6 Hypokalemia; M54.9 Dorsalgia, unspecified; M62.830 Muscle spasm of back; G89.29 Other chronic pain; N83.201 Unspecified ovarian cyst, right side; N83.202 Unspecified ovarian cyst, left side
CPT/HCPCS: 74176; 80048; 81001; 81025; 85025; 96361; 96374; 96375; 99284; J7030; A4216; J2405

== ENCOUNTER 2018-06-22 21:27 | Emergency (ER) | payer OTHER, SELFPAY ==
[2018-06-22 21:29] VITALS: BP 104/89; PULSE 108; RESP 20; TEMP 36.3; O2SAT 100; BMI 19.3
[2018-06-22 22:24] LABS: Absolute Lymphocyte Count 2.62 X10^3/ul (0.83-4.51); Absolute Neutrophil Count 6.3 X10^3/uL (2.0-7.7); Basophil# 0.02 X10^3/uL; Basophil% 0.2 % (0-1); Eosinophil# 0.12 X10^3/uL; Eosinophils% 1.2 % (0-5); Hematocrit 41.9 % (37-47); Hemoglobin 14.3 g/dl (12.0-15.0); Lymphocyte # 2.62 X10^3/ul (4.0); Lymphocyte % 26.3 % (19-41); Mean Corp Hgb Conc 34.1 g/gl (32-36); Mean Corpuscular Hgb 29.9 pg (27.0-32.0); Mean Corpuscular Volume 87.7 fL (81-99); Mean Platelet Vol. 9.4 fl (6.2-12.0); Monocyte# 0.86 X10^3/uL; Monocyte% 8.6 % (0-10); Neutrophil # 6.32 X10^3/uL (2.7-7.7); Neutrophil % 63.5 % (47-70); POSITIVE COUNT NO; POSITIVE DIFFERENTIAL NO; POSITIVE MORPHOLOGY NO; Platelet Count 166 K/mm3 (150-450); RBC Distribution Width CV 12.4 % (11.6-14.6); RBC Distribution Width SD 39.8 fl (35.1-43.9); Red Blood Count 4.78 M/mm3 (4.2-5.4)
[2018-06-22 22:26] LABS: Alcohol, Blood (Medical)-Serum < 3.0 mg/dL; Anion Gap 9 (5-15); BUN 9 mg/dL (7-18); BUN/Creat Ratio 12.3 RATIO (10-20); Calcium,Total 9.1 mg/dL (8.5-10.1); Chloride 111 mmol/L (98-107); Creatinine, Serum 0.73 mg/dL (0.55-1.02); EST Glomerular Filtration Rate 109 mL/min (>60); Est Glom Filt Rate - Afr Amer 132 mL/min (>60); Estimated Creatinine Clearance 97.06 ml/min; Glucose 84 mg/dL (74-106); Potassium 3.3 mmol/L (3.5-5.1); Sodium Level 143 mmol/L (136-145)
[2018-06-22 22:27] VITALS: RESP 18
[2018-06-22 22:37] LABS: Pregnancy, Serum, hCG Quali. NEGATIVE Negative (0-9 Nonpreg)
[2018-06-22 22:38] LABS: Amphetamine Urine VISTA NEGATIVE (<1000 ng/mL); Barbiturate Urine VISTA NEGATIVE (< 200 ng/mL); Benzodiazepine Urine VISTA NEGATIVE (< 200 ng/mL); Cocaine Urine VISTA NEGATIVE (< 300 ng/mL); Ecstacy Urine VISTA NEGATIVE (< 500 ng/mL); Methadone Urine VISTA NEGATIVE (< 300 ng/mL); PCP Urine VISTA NEGATIVE (< 25 ng/mL); THC Urine VISTA POSITIVE (< 50 ng/mL); Vista UDS pH Range 6
--- NOTE | 2018-06-22 22:55 | ED.VISSUMM ---
- ER Visit Summary Date of Service: 06/22/18 Chief Complaint: Suicidal ideation History of Present Illness: The patient is a 17 F who presents with suicidal ideation. She has been having in her suicidal thoughts for a couple of months. She does see someone at [facility]. She states she is supposed to be on medication for depression and anxiety but is not taking it. After breaking up with her boyfriend today her suicidal thoughts were worse. She states lots of things crossed my mind including walking out in front of a truck. She states the scares her. She did arrive pink slipped. She denies recent medical illness such as fevers vomiting diarrhea. Physical Examination: Heart rate 108 vitals otherwise normal Moist mucous membranes Patient is anxious and tearful. She admits to suicidal thoughts. Heart regular rhythm slightly tachycardic Lungs clear Abdomen soft Alert Test Results: Medical clearance including CBC BMP urine drug screen serum alcohol notable only for cannabinoids on drug screen. Emergency Department Course and Treatment: Patient to be evaluated by crisis. I do believe she will likely need transfer for psychiatric hospitalization. Treatment Plan: [] Disposition: Transfer pending crisis evaluation Impression: Suicidal ideation This note was generated with [employer] dictation software. It may contain incorrect words, spelling, and punctuation that were not noted in review of the chart prior to signing ED Disposition - Plan for ED Patient: Referrals: Care Physician,No Primary [Primary Care Provider] -
[2018-06-22 23:00] VITALS: RESP 16
[2018-06-23] VITALS (16 sets, daily range): BP systolic 96–120; BP diastolic 62–78; PULSE 18–86; RESP 14–20; TEMP 36.4–36.6; O2SAT 97–100
[2018-06-23] MEDS: hydrOXYzine PAM 25 MG Capsule PO (00:52)
--- NOTE | 2018-06-23 02:01 | ED.RN ---
PT ACCEPTED AT [facility], WE MUST WAIT FOR DISCHARGES IN THE MORNING
--- NOTE | 2018-06-23 02:02 | ED.RN ---
patient has been accepted at [facility]. patient currently on waiting list. will call when bed is ready [phone]
--- NOTE | 2018-06-23 11:42 | NURSING ---
CALLED [facility]. THEY HAVE ONE FEMALE PATIENT THAT WILL BE DISCHARGED. OUR PATIENT IS THE FIRST ON THE LIST FOR HER BED. THEY WILL CALL US AT THAT TIME.
--- NOTE | 2018-06-23 17:14 | NURSING ---
MALIKA, CRISIS, HERE TO SEE PATIENT.
[2018-06-24] VITALS (10 sets, daily range): BP systolic 101–120; BP diastolic 61–75; PULSE 59–87; RESP 14–18; O2SAT 98–100
--- NOTE | 2018-06-24 11:38 | ED.RN ---
PT PROVIDED WITH MATERIALS TO CLEAN SELF, TAKEN TO BATHROOM AND [id number] SELF CARE AND HYGIENE UNDER SUPERVISION. CLEAN LINENS WERE PROVIDED FOR BED AND CLEAN GOWN AND SOCKS WERE GIVEN. PT DENIES FURTHER NEEDS AT THIS TIME. LUNCH ORDERED.
--- NOTE | 2018-06-24 12:26 | ED.RN ---
ACCEPTED AT [facility]. [address] REDDY [phone]
== END 2018-06-24 13:20 ==
PROVIDERS: Emergency Provider Emergency Medicine
DX: R45.851 Suicidal ideations (principal); F41.9 Anxiety disorder, unspecified; F32.9 Major depressive disorder, single episode, unspecified; Z91.14 Patient's other noncompliance with medication regimen; F12.90 Cannabis use, unspecified, uncomplicated; Z72.0 Tobacco use
CPT/HCPCS: 80048; 80307; 80320; 84703; 85025; 99285; G0480

== ENCOUNTER 2018-09-15 23:41 | Emergency (ER) | payer OTHER, SELFPAY ==
[2018-09-15 23:42] VITALS: BP 111/70; PULSE 104; RESP 16; TEMP 36.4; O2SAT 100; BMI 19.5
[2018-09-16] MEDS: 0.9% Normal Saline 1,000 ML 999 ML IV (00:16)
[2018-09-16] MEDS: Ketorolac 30 MG/ML Syringe IV (00:16)
[2018-09-16] MEDS: Ondansetron 4 MG/2 ML Vial IV (00:16)
[2018-09-16 00:24] LABS: Absolute Lymphocyte Count 3.23 X10^3/ul (0.83-4.51); Absolute Neutrophil Count 6.3 X10^3/uL (2.0-7.7); Basophil# 0.02 X10^3/uL; Basophil% 0.2 % (0-1); Eosinophil# 0.14 X10^3/uL; Eosinophils% 1.3 % (0-5); Hematocrit 41.5 % (37-47); Hemoglobin 14.5 g/dl (12.0-15.0); Lymphocyte # 3.23 X10^3/ul (4.0); Lymphocyte % 29.7 % (19-41); Mean Corp Hgb Conc 34.9 g/gl (32-36); Mean Corpuscular Hgb 30.6 pg (27.0-32.0); Mean Corpuscular Volume 87.6 fL (81-99); Mean Platelet Vol. 9.5 fl (6.2-12.0); Monocyte# 1.15 X10^3/uL; Monocyte% 10.6 % (0-10); Neutrophil # 6.31 X10^3/uL (2.7-7.7); POSITIVE COUNT NO; POSITIVE DIFFERENTIAL NO; POSITIVE MORPHOLOGY NO; Platelet Count 217 K/mm3 (150-450); RBC Distribution Width CV 12.6 % (11.6-14.6); RBC Distribution Width SD 39.2 fl (35.1-43.9); Red Blood Count 4.74 M/mm3 (4.2-5.4); White Blood Count 10.9 K/mm3 (4.4-11.0)
[2018-09-16 00:33] LABS: Internal QC Validated? YES +Cl - CLEAR BKGD; Pregnancy, Serum, hCG Quali. NEGATIVE Negative
[2018-09-16 00:42] LABS: ALB/GLOB Ratio 1.1 RATIO (0.9-2.4); AST(SGOT) 20 U/L (15-37); Alanine Aminotransfer ALT/SGPT 20 U/L (13-56); Alkaline Phosphatase 86 U/L (45-117); Anion Gap 8 (5-15); BUN 11 mg/dL (7-18); BUN/Creat Ratio 12.1 RATIO (10-20); Calcium,Total 8.9 mg/dL (8.5-10.1); Chloride 109 mmol/L (98-107); Creatinine, Serum 0.91 mg/dL (0.55-1.02); EST Glomerular Filtration Rate 84 mL/min (>60); Est Glom Filt Rate - Afr Amer 102 mL/min (>60); Estimated Creatinine Clearance 78.75 ml/min; Globulin 3.7 g/dL (2.2-4.2); Glucose 83 mg/dL (74-106); Lipase 66 U/L (73-393); Potassium 3.7 mmol/L (3.5-5.1); Protein, Total 7.7 g/dL (6.4-8.2); Sodium Level 140 mmol/L (136-145)
--- NOTE | 2018-09-16 00:58 | ED.DCSUM_ITS ---
- ER Visit Summary Date of Service: 09/16/18 Chief Complaint: Abdominal pain History of Present Illness: The patient is a 17 F who presents with abdominal pain. She complains of right upper abdominal pain for the past 6 hours. She currently rates it as a 4 out of 10. She denies any associated symptoms such as fevers nausea vomiting diarrhea any urinary symptoms. She has been seen earlier this year in May with a similar presentation and had some questionable gallbladder wall thickening. She was advised to follow-up as an outpatient for right upper quadrant ultrasound but this did not occur. Physical Examination: Afebrile heart rate 104 vitals otherwise normal Patient resting comfortably no distress Heart regular rhythm, slightly tachycardic Lungs are clear Abdomen soft nondistended she does have some right upper quadrant abdominal tenderness but no guarding no rebound negative Miller sign Test Results: CBC CMP lipase are normal. negative. Emergency Department Course and Treatment: Patient was treated with IV fluids, Toradol, Zofran. Work-up as above is unremarkable. Although gallbladder pathology is suspected presentation is not suggestive of acute cholecystitis. She has no fevers, nausea, vomiting, leukocytosis, evidence of biliary obstruction. She was given a referral to establish a primary care physician and I recommended that she follow-up as an outpatient. She should have an outpatient right upper quadrant ultrasound. Ultrasound is not available at this time in the emergency department. Patient does understand to return for new or worsening symptoms. Treatment Plan: [] Disposition: Discharge Impression: Abdominal pain This note was generated with [employer] dictation software. It may contain incorrect words, spelling, and punctuation that were not noted in review of the chart prior to signing ED Disposition - Plan for ED Patient: Referrals: Care Physician,No Primary [Primary Care Provider] -
--- NOTE | 2018-09-16 00:58 | ED.DEP ---
ED Disposition - Plan for ED Patient: Instructions: ED Abdominal Pain Unkn Cause Referrals: Care Physician,No Primary [Primary Care Provider] - Filemon Caba MD [STAFF PHYSICIAN] -
[2018-09-16 01:05] VITALS: BP 119/74; PULSE 62; RESP 15; O2SAT 99
== END 2018-09-16 01:07 | disposition home or self-care (01) ==
PROVIDERS: Emergency Provider Emergency Medicine
DX: R10.11 Right upper quadrant pain (principal); Z72.0 Tobacco use
CPT/HCPCS: 80053; 83690; 84703; 85025; 96361; 96374; 96375; 99284; J7030; A4216; J2405

== ENCOUNTER 2019-01-25 15:59 | Emergency (ER) | payer OTHER, MEDICAID, SELFPAY ==
[2019-01-25 16:00] VITALS: BP 126/77; PULSE 101; RESP 17; TEMP 36.1; O2SAT 100; BMI 21.2
--- NOTE | 2019-01-25 16:13 | ED.RN ---
PT DENIES ANY MEDICAL COMPLAINTS OR CONCERNS, STATES I'M JUST HERE FOR A TEST, i DON'T WANT TO WAIT TIL NEXT WEEK WHEN [facility]
[2019-01-25 17:15] LABS: Internal QC Validated? YES +Cl - CLEAR BKGD; Pregnancy, Serum, hCG Quali. NEGATIVE Negative
--- NOTE | 2019-01-25 17:24 | ED.VISSUMM ---
- ER Visit Summary Date of Service: 01/25/19 Chief Complaint: test History of Present Illness: The patient is a 18 F who presents requesting a test. Patient states her last menstrual period was November 19, 2018. Patient states she feels bloated in her stomach. Patient admits to some nausea and abdominal pain. Patient states she also has some back pain but this is chronic. Patient denies any dysuria or hematuria. Patient denies any chest pain or shortness of breath. Physical Examination: Vital signs are stable. Patient is afebrile. Patient is in no acute distress. Oral mucosa is pink and moist. Neck is supple. Trachea is midline. There is no JVD noted. Heart was regular rate and rhythm. Lungs are clear and equal bilaterally. Abdomen is soft. Bowel sounds are normal. There is no tenderness. There is no guarding noted. Cranial nerves II through XII are intact. There are no focal motor or sensory deficits noted. Test Results: Serum hCG was obtained and was negative. Emergency Department Course and Treatment: Patient was advised of her lab results. Patient was instructed to follow-up with her primary care physician in 7 to 10 days as needed. Patient understood and was agreeable with the plan. All questions were answered. Disposition: Discharge home Impression: Feared complaint This note was generated with [employer] dictation software. It may contain incorrect words, spelling, and punctuation that were not noted in review of the chart prior to signing ED Disposition - Plan for ED Patient: Disposition: Home or Assisted Living Diagnosis: test negative Instructions: HCG (Blood) Referrals: Care Physician,No Primary [Primary Care Provider] - 1-2 Weeks Additional Instructions: Your test was negative. Follow-up with your primary care physician in 1 to 2 weeks as needed.
== END 2019-01-25 17:50 | disposition home or self-care (01) ==
PROVIDERS: Emergency Provider Emergency Medicine
DX: Z32.02 Encounter for pregnancy test, result negative (principal); Z71.1 Person with feared health complaint in whom no diagnosis is made; R10.9 Unspecified abdominal pain; R11.0 Nausea; R14.0 Abdominal distension (gaseous); M54.9 Dorsalgia, unspecified; G89.29 Other chronic pain; R07.9 Chest pain, unspecified; F17.200 Nicotine dependence, unspecified, uncomplicated
CPT/HCPCS: 36415; 84703; 99282

== ENCOUNTER 2019-07-30 16:17 | Emergency (ER) | payer MEDICAID, SELFPAY ==
[2019-07-30 16:19] VITALS: BP 97/56; PULSE 96; RESP 18; TEMP 36.3; O2SAT 98; BMI 20.9
--- NOTE | 2019-07-30 16:42 | RAD_ITS ---
STUDY: X-RAY - LEFT RADIUS AND ULNA REASON FOR EXAM: Female, 18 years old. Bitten by dog proximal anterior forearm ;pain proximal forearm and wrist. Shielded abdomen TECHNIQUE: 2 view(s) of the forearm. COMPARISON: None. FINDINGS: There is no demonstrated soft tissue swelling. No radiopaque foreign bodies. Normal visualized radius. Normal visualized ulna. There is no demonstrated acute fracture. RAD/Forearm 2 Views IMPRESSION: Normal x-ray examination of the radius and ulna. Electronically Signed: Bill Butler MD at 17:09 EDT , Service support ,
[2019-07-30] MEDS: Acetaminophen 500 MG Tablet 1000 MG PO (17:04)
--- NOTE | 2019-07-30 17:10 | ED.VISSUMM ---
- ER Visit Summary Date of Service: 07/30/19 Chief Complaint: Dog bite History of Present Illness: The patient is a 18 F who presents with a dog bite to her left forearm that occurred today. Patient states she was running with her dog when another dog bit her on her left forearm. Patient states the pain is aching, sharp, and stabbing at times. Patient states the pain is worse with any movement. Patient denies any paresthesias or weakness. Patient states her immunizations are up-to-date. Patient is unsure who the physical science technician of the dog is. Physical Examination: Vital signs are stable. Patient is afebrile. Patient is in no acute distress. Musculoskeletal exam reveals tenderness over the left forearm. There is no deformity. There is no bony crepitance or step-off. There is a 1.5 cm laceration over the volar/radial aspect of the proximal left forearm. There is also a 1 cm laceration over the volar/ulnar aspect of the left forearm. There were 2 other puncture wounds on the volar aspect of the proximal forearm. There is no active bleeding. There is no foreign body noted. There is moderate gapping of the wound margins. Sensation was intact to light touch in the radial, median, and ulnar areas. Capillary refill was less than 2 seconds in all digits. Radial pulses are equal bilaterally. Strength is 5/5 in the radial, median, and ulnar areas. Test Results: X-rays of the left forearm were obtained. There is no acute fracture or foreign body. Emergency Department Course and Treatment: Since the patient is allergic to penicillins, patient was given a prescription for doxycycline. Patient was given her first dose here. The wounds were cleaned and irrigated with copious amounts of normal saline. The wounds were closed with Steri-Strips. Patient was instructed to keep the wounds clean and dry. Patient was instructed to follow-up with her primary care physician in 5 to 7 days. Patient understood and was agreeable with the plan. All questions were answered. Disposition: Discharge home Impression: Dog bite left forearm This note was generated with [employer] dictation software. It may contain incorrect words, spelling, and punctuation that were not noted in review of the chart prior to signing ED Disposition - Plan for ED Patient: Disposition: Home or Assisted Living Diagnosis: Dog bite of left forearm Instructions: ED Animal Bite General Prescriptions: Doxycycline 100 mg PO BID #20 cap Prescription Printed Referrals: Care Physician,No Primary [NON-STAFF] - 5-7 Days
[2019-07-30] MEDS: Doxycycline 100 MG CAPSULE PO (17:56)
== END 2019-07-30 17:59 | disposition home or self-care (01) ==
PROVIDERS: Emergency Provider Emergency Medicine; PCP Nurse Practitioner Family
DX: S51.812A Laceration without foreign body of left forearm, initial encounter (principal); S51.832A Puncture wound without foreign body of left forearm, initial encounter; W54.0XXA Bitten by dog, initial encounter; Y93.89 Activity, other specified; Y92.9 Unspecified place or not applicable; Y99.8 Other external cause status; F41.9 Anxiety disorder, unspecified; F31.9 Bipolar disorder, unspecified; Z72.0 Tobacco use
CPT/HCPCS: 73090; 99283

== ENCOUNTER 2020-05-18 20:08 | Emergency (ER) | payer MEDICAID, SELFPAY ==
[2020-05-18 20:09] VITALS: BP 115/81; PULSE 97; RESP 16; TEMP 35.7; O2SAT 100; BMI 24.3
--- NOTE | 2020-05-18 21:14 | ED.VIS.GEN ---
History of Present Illness Chief Complaint: Upper Extremity Injury Informant: Patient Onset: Days - Injury occurred Sunday Context: Sudden Onset Timing: Continuous Quality: Pain Location: Dorsal lateral right hand and junction of the carpal ulnar bone Current Severity: Mild Maximum Severity: Moderate Worsened by: Use of hand Relieved by: Better with rest Associated Symptoms: Intermittent tingling greatest lateral aspect right elbow Narrative: Patient is a 19-year old woman who presents with blunt injury to her right upper extremity. She is right-hand dominant. She is . 23 weeks gestation. She states she got pinned between dog sink and herself. She presents because of persistent pain. She has bruising. She declined pain medicine. She does report intermittent paresthesia. She denies loss of function. She denies any other injury. Prior similar symptoms: No Recent Illness/Hospitalization: No - Past Medical History (1) No significant past medical history Status: Acute Past Medical History - Allergies and Home Meds Allergies/Adverse Reactions: Allergies Penicillins Allergy (Verified 05/18/20 20:11) Unknown ALL CILLINS Primary Care Physician: Mekhi Bobo MD [Primary Care Provider] - Prior records reviewed: Yes Surgical History: noncontributory Lives: Spouse/ Significant Other Smoking Status: Current every day smoker Alcohol: None Drugs: None Review of Systems Cardiovascular: Denies: Chest pain, Palpitations Respiratory: Denies: Dyspnea, Cough, Dyspnea on exertion Gastrointestinal: Denies: Nausea, Vomiting Musculoskeletal: Reports: Extremity Pain Skin: Reports: Abrasions, Wounds. Denies: Rash Neurological: Reports: Parasthesia. Denies: Weakness, Numbness Hematologic: Denies: Easy bruising, Easy bleeding Physical Exam Vital Signs/Narrative: Vital Signs Temp Pulse Resp BP Pulse Ox 05/18/20 20:09 96.3 F L 97 16 115/81 H 100 Inital Vital Signs reviewed: Yes General: Well nourished, Well developed, No Acute Distress Head: Normocephalic, Atraumatic Eyes: Perrl, EOMI. Negative for: Pale conjunctiva, Scleral icterus Cardiovascular: Regular rate, Regular rhythm Respiratory: No distress Extremities: No edema, Tenderness - Tenderness to palpation over the fourth and fifth metacarpal bone and over the ulnar styloid. There is no point tenderness over the lateral or medial epicondyles. There is no pain ovation over the olecranon process. There is no pain ovation over the radial head with supination pronation., - - Median, radial and ulnar function intact. Capillary refill is normal. There is no subungual hematoma of any of the fingers or thumb.. Negative for: Nontender Skin: Normal color, No rash, Trauma - Previously described Neurological: Alert, Oriented x3, Normal Strength, Normal Sensation Psychological: Normal affect Diagnostic/Tx/Re-eval Chest X-Ray - ED: Read by ED Physician, - - Views of the right hand were performed. The x-rays were interpreted by me as negative. There is no fracture, subluxation or dislocation. Patient was treated for a contusion. 05/18/20 21:15 Hand Min 3 Views [RAD] Stat - Medical Decision Making The hand was obtained to evaluate for contusion versus fracture. Patient was offered pain medicine, which she declined. ED Disposition - Plan for ED Patient: Disposition: Home or Assisted Living Diagnosis: Contusion of right hand, initial encounter, Contusion of right wrist, initial encounter, Abrasion of right hand, initial encounter Instructions: ED Contusion, Upper Extremity, ED Abrasion Referrals: Mekhi Bobo MD [Primary Care Provider] - As Needed
--- NOTE | 2020-05-18 21:15 | RAD_ITS ---
STUDY: X-RAY - RIGHT HAND REASON FOR EXAM: Female, 19 years old. FELL SATURDAY AND INJURED HAND. PAIN IS ALONG LATERAL SIDE PATIENT IS 27 WEEKS AND WAS SHIELDED* TECHNIQUE: 3 view(s) of the hand. COMPARISON: None. FINDINGS: Normal radiocarpal articulation. Normal distal radioulnar joint. Normal visualized carpal bones. Normal carpal articulations Normal carpometacarpal articulation of the thumb. Normal second through fifth carpometacarpal joints. Normal metacarpi. Normal metacarpophalangeal joint of the thumb. Normal interphalangeal joint of the thumb. Normal proximal and distal phalanges of the thumb. Normal metacarpophalangeal joints of the second through fifth fingers. Normal proximal and distal interphalangeal joints of the second through fifth fingers. Normal phalanges of the second through fifth fingers. The soft tissue structures are unremarkable. RAD/Hand Min 3 Views IMPRESSION: Normal x-ray examination of the hand. Electronically Signed: Ray Shelby MD at 21:27 EST , Service support ,
[2020-05-18 21:30] VITALS: BP 102/61; PULSE 89; RESP 16; O2SAT 99
[2020-05-18 21:31] VITALS: BP 102/61; PULSE 81; RESP 16; O2SAT 199
== END 2020-05-18 21:41 | disposition home or self-care (01) ==
PROVIDERS: Emergency Provider Emergency Medicine; PCP Obstetrics & Gynecology
DX: O9A.212 Injury, poisoning and certain other consequences of external causes complicating pregnancy, second trimester (principal); S60.211A Contusion of right wrist, initial encounter; S60.221A Contusion of right hand, initial encounter; S60.511A Abrasion of right hand, initial encounter; Z3A.23 23 weeks gestation of pregnancy; X58.XXXA Exposure to other specified factors, initial encounter; Y93.9 Activity, unspecified; Y92.9 Unspecified place or not applicable; O99.332 Smoking (tobacco) complicating pregnancy, second trimester; F17.200 Nicotine dependence, unspecified, uncomplicated
CPT/HCPCS: 73130; 99282

== ENCOUNTER 2020-06-25 21:06 | Emergency (ER) | payer MEDICAID, SELFPAY ==
[2020-06-25 21:08] VITALS: BP 124/78; PULSE 108; RESP 16; TEMP 36.4; O2SAT 98; BMI 26.9
--- NOTE | 2020-06-25 21:41 | RAD_ITS ---
STUDY: X-RAY - RIGHT HAND REASON FOR EXAM: Female, 19 years old. Dog bite to R hand. Pt is 32 weeks and shielded. TECHNIQUE: 3 view(s) of the hand. COMPARISON: None. FINDINGS: Normal radiocarpal articulation. Normal distal radioulnar joint. Normal visualized carpal bones. Normal carpal articulations Normal carpometacarpal articulation of the thumb. Normal second through fifth carpometacarpal joints. Normal metacarpi. Normal metacarpophalangeal joint of the thumb. Normal interphalangeal joint of the thumb. Normal proximal and distal phalanges of the thumb. Normal metacarpophalangeal joints of the second through fifth fingers. Normal proximal and distal interphalangeal joints of the second through fifth fingers. Normal phalanges of the second through fifth fingers. No visualized fracture. No radiopaque foreign body is seen. The soft tissue structures are unremarkable. RAD/Hand Min 3 Views IMPRESSION: Normal x-ray examination of the hand. Electronically Signed: Wayne Villegas MD at 21:57 EST , Service support ,
[2020-06-25] MEDS: HYDROcodone Bitartrate/Apap 5/325 Tablet PO (21:45)
[2020-06-25] MEDS: Diphth,Pertuss(Acell),Tet Vac 0.5 ML Vial IM (21:46)
--- NOTE | 2020-06-25 21:48 | ED.DCSUM_ITS ---
- ER Visit Summary Date of Service: 06/25/20 Chief Complaint: Dog bite History of Present Illness: The patient is a 19 F presenting with dog bite to right hand. Patient states she was trying to break up a fight between her 2 dogs. The dog's shots are up-to-date. She was bitten on her right hand. Her last tetanus immunization is unknown. She is right-handed. No other injuries. She is 32 weeks . Physical Examination: Vitals are stable. Patient is afebrile. Alert no acute distress. HEENT exam is unremarkable. Neck is supple. Lungs are clear and equal bilaterally. Heart is regular rate and rhythm. Extremities right hand puncture dorsum hand and 2 puncture to wrist. Normal tendon function. Normal cap refill Skin is warm and dry. No focal neurologic deficit. Remainder of exam is unremarkable. Emergency Department Course and Treatment: Patient was given Adacel IM. She was given [place]. Ice pack was applied. Right hand x-ray shows Normal x-ray examination of the hand. Wounds were copiously irrigated. Patient has a penicillin allergy and was given Zithromax. She is advised wound care instructions. Advised to follow-up with PCP/LEAD TECHNICAL WRITER. Advised return to ED for worsening complaints. Disposition: Discharge home Impression: Dog bite right hand This note was generated with [employer] dictation software. It may contain incorrect words, spelling, and punctuation that were not noted in review of the chart prior to signing ED Disposition - Plan for ED Patient: Instructions: ED Dog Bite Prescriptions: Azithromycin [Zithromax Z-Pradeep] 250 mg PO UD #1 box Prescription Printed Referrals: Mekhi Bobo MD [Primary Care Provider] -
--- NOTE | 2020-06-25 22:07 | ED.DEP ---
ED Disposition - Plan for ED Patient: Instructions: ED Dog Bite Referrals: Mekhi Bobo MD [Primary Care Provider] -
--- NOTE | 2020-06-25 22:25 | ED.DEP ---
ED Disposition - Plan for ED Patient: Instructions: ED Dog Bite Prescriptions: Azithromycin [Zithromax Z-Pradeep] 250 mg PO UD #1 box Prescription Printed Referrals: Mekhi Bobo MD [Primary Care Provider] -
[2020-06-25] MEDS: Azithromycin 250 MG Tablet 500 MG PO (22:37)
--- NOTE | 2020-06-26 10:48 | ED.RN ---
PT CALLED UNABLE TO LOCATE THE PRESCRIPTION. THIS NURSE ALSO ATTEMPTED TO LOCATE THE PRESCRIPTION. I SPOKE WITH DR DEVLIN WHO WILL CALL IN A NEW PRESCRIPTION. PT UPDATED ON THE SAME
== END 2020-06-25 22:49 | disposition home or self-care (01) ==
LOC: ED 21:42
PROVIDERS: Emergency Provider Emergency Medicine; PCP Obstetrics & Gynecology
DX: S60.571A Other superficial bite of hand of right hand, initial encounter (principal); W54.0XXA Bitten by dog, initial encounter; Y93.9 Activity, unspecified; Y92.9 Unspecified place or not applicable
CPT/HCPCS: 73130; 90471; 90715; 99283

== ENCOUNTER 2020-07-29 20:30 | Outpatient (CLI) | payer MEDICAID, SELFPAY ==
[2020-07-29 20:49] VITALS: BP 115/58; PULSE 84
[2020-07-29 20:50] VITALS: BP 115/58; PULSE 84; TEMP 36.6; O2SAT 96
[2020-07-29 21:01] VITALS: BMI 24.5
[2020-07-29 21:32] LABS: ROM Internal Control Test YES-OK TO RESULT pt. (Internal QC); ROM Patient Test Negative (Negative)
[2020-07-29 22:14] LABS: Color, Urine Yellow (Yellow); Glucose, Dipstick Normal (Normal); Ketone-Dipstick Negative (Negative); Leukocyte Esterase-Dipstick 25 /ul (Negative); Nitrite-Dipstick Negative (Negative); Occult Blood-Urine 150 /ul (Negative); Protein-Dipstick Negative (Negative); Urine Bilirubin Dipstick Negative (Negative); Urine Clarity Clear (Clear); Urine Urobilinogen Normal (Normal); Urine pH 6.5 (5.0 - 8.0)
[2020-07-29 22:27] LABS: Bacteria 1+ /hpf (None Seen); Squamous Epithelial Cells - UA 0-5 SEEN /hpf (5-10); White Blood Cells 0-5 SEEN /hpf (0-5)
[2020-07-29 22:28] LABS: Mucous, Urine RARE /hpf (<or=2+); Red Blood Cells-Urine 0-5 SEEN /hpf (0-5)
--- NOTE | 2020-07-30 | OB.TRI.HP_ITS ---
- Problem List (1) 37 weeks gestation of Status: Acute (2) Irregular contractions Status: Acute History of Present Illness Was patient seen by the physician?: Yes Reason For Visit: R/O LABOR Date of Service: 07/30/20 Final NICK: 08/16/20 Gestational age: 37 Weeks and 4 Days History of Present Illness: Patient is a at 37.3 weeks gestation that presents with contractions that started earlier this evening. Patient denies any loss of fluid and has positive movement. Allergies Penicillins Allergy (Verified 07/29/20 21:03) Unknown ALL CILLINS Laboratory Studies: Laboratory Tests 07/29/20 07/29/20 Range/Units 21:45 21:00 Urine Color Yellow (Yellow) Urine Clarity Clear (Clear) Urine pH 6.5 (5.0 - 8.0) Ur Specific [place] 1.010 (1.002-1.030) Urine Protein Negative (Negative) mg/dl Urine Glucose (UA) Normal (Normal) mg/dl Urine Ketones Negative (Negative) mg/dl Urine Occult Blood 150 H (Negative) /ul Urine Nitrite Negative (Negative) Urine Bilirubin Negative (Negative) mg/dL Urine Urobilinogen Normal (Normal) mg/dl Ur Leukocyte Esterase 25 H (Negative) /ul Urine RBC 0-5 SEEN (0-5) /hpf Urine WBC 0-5 SEEN (0-5) /hpf Ur Squamous Epith Cells 0-5 SEEN (5-10) /hpf Urine Bacteria 1+ (None Seen) /hpf Urine Mucus RARE (<or=2+) /hpf Vag Amniotic Fld Detect Negative (Negative) Review of Systems Constitutional: Denies: Chills, Fever, Weight Change HEENT: Denies: Head Aches, Sinus Congestion, Sinus Drainage Cardiovascular: Denies: Chest Pain, Palpitations Respiratory: Denies: Cough, Shortness of breath at rest, Sputum production Gastrointestinal: Denies: Abdominal Pain, Nausea, Vomiting Genitourinary: Denies: Dysuria Musculoskeletal: Denies: Joint Pain, Joint Tenderness Neurological: Denies: Numbness, Tingling, Focal weakness Psychiatric: Denies: Anxiety, Depression, Homicidal Ideations, Suicidal Ideations Physical Exam Vitals: Vital Signs Temp Pulse BP Pulse Ox 97.8 F 84 115/58 L 96 07/29/20 20:50 07/29/20 20:50 07/29/20 20:50 07/29/20 20:50 General: Alert, Oriented x3 HEENT: Atraumatic Cardiovascular: Regular rate Lungs: Clear to auscultation, Normal air movement Abdomen: Soft, Non Tender, Non-Distended, Gravid Neurological: Cranial nerves II-XII grossly intact Estimated gestational size: Appropriate for gestational size Presentation: Cephalic Cervix Dilation (cm): 0 Station: -3 NST - FHR Rate Baby A Baseline: 135 Variability:: Moderate Accelerations:: 15 x 15 Decelerations:: None NST Reactive:: Yes FHR Category:: Category I Uterine Activity:: Occasional contractions- irritability Impression/Plan at 37.3 weeks gestation here to rule out labor. Continuous EFM Category 1 tracing, NST reactive CE- closed/thick/high- unchanged UA sent- negative ROM plus collected and sent- negative Discharge home with labor precautions and patient to follow up in office
== END 2020-07-30 00:15 | disposition home or self-care (01) ==
LOC: WPOUT 20:35 → WP 20:36
PROVIDERS: PCP Obstetrics & Gynecology; Visit Provider Advanced Practice Midwife
DX: O62.9 Abnormality of forces of labor, unspecified (principal); Z3A.37 37 weeks gestation of pregnancy
CPT/HCPCS: 59025; 59050; 81001; 84112; 99218; G0378

== ENCOUNTER 2020-08-15 00:15 | Outpatient (CLI) | payer MEDICAID, SELFPAY ==
[2020-08-15 00:28] VITALS: BP 107/66; PULSE 229; PULSE 90; PULSE 92; TEMP 36.2; O2SAT 81; O2SAT 98
[2020-08-15 00:38] VITALS: BMI 25.9
[2020-08-15 01:09] LABS: ROM Internal Control Test YES-OK TO RESULT pt. (Internal QC); ROM Patient Test Negative (Negative)
--- NOTE | 2020-08-15 13:23 | OB.TRI.PN ---
Progress Notes Date of Service: 08/15/20 Progress Note: at 39w6d Presented to labor and delivery with irregular contractions. No leakage of fluid or vaginal bleeding. O:FHR 130, moderate variability, accels, no decels, Reactive NST Irregular contractions Cervix remains unchanged A:False Labor P: 1) Discharge home 2) Follow up outpatient as scheduled. Laboratory Studies: Laboratory Tests 08/15/20 Range/Units 00:40 Vag Amniotic Fld Detect Negative (Negative)
== END 2020-08-15 02:24 | disposition home or self-care (01) ==
LOC: WPOUT 00:22 → WP 00:23
PROVIDERS: PCP Obstetrics & Gynecology; Referring Provider Advanced Practice Midwife; Visit Provider Advanced Practice Midwife
DX: O47.1 False labor at or after 37 completed weeks of gestation (principal); Z3A.39 39 weeks gestation of pregnancy
CPT/HCPCS: 59025; 59050; 84112; 99218; G0378

== ENCOUNTER 2020-08-17 01:25 | Inpatient (IN) | payer MEDICAID, SELFPAY ==
[2020-08-17] VITALS (58 sets, daily range): BP systolic 93–189; BP diastolic 50–137; PULSE 64–113; RESP 16; TEMP 35.9–36.9; O2SAT 88–100; BMI 26.4
[2020-08-17] MEDS: Lactated Ringers 1,000 ML 50 ML IV (01:35)
[2020-08-17 01:50] LABS: Absolute Lymphocyte Count 2.13 X10^3/uL (0.83-4.51); Absolute Neutrophil Count 8.8 X10^3/uL (2.0-7.7); Basophil# 0.03 X10^3/uL; Basophil% 0.2 % (0-1); Eosinophil# 0.15 X10^3/uL; Eosinophils% 1.2 % (0-5); Hematocrit 31.3 % (37-47); Hemoglobin 10.3 g/dL (12.0-15.0); Lymphocyte # 2.13 X10^3/ul (4.0); Lymphocyte % 17.1 % (19-41); Mean Corp Hgb Conc 32.9 g/dL (32-36); Mean Corpuscular Hgb 28.9 pg (27.0-32.0); Mean Corpuscular Volume 87.9 fL (81-99); Mean Platelet Vol. 9.3 fl (6.2-12.0); Monocyte# 1.23 X10^3/uL; Monocyte% 9.8 % (0-10); NRBC Flagged by Analyzer 0 % (0-5); Neutrophil # 8.82 X10^3/uL (2.7-7.7); Neutrophil % 70.7 % (47-70); Platelet Count 239 K/mm3 (150-450); RBC Distribution Width CV 14.9 % (11.6-14.6); RBC Distribution Width SD 47.8 fl (35.1-43.9); Red Blood Count 3.56 M/mm3 (4.2-5.4); White Blood Count 12.5 K/mm3 (4.4-11.0)
[2020-08-17 02:50] LABS: Amphetamine Urine VISTA NEGATIVE (<1000 ng/mL); Barbiturate Urine VISTA NEGATIVE (< 200 ng/mL); Benzodiazepine Urine VISTA NEGATIVE (< 200 ng/mL); Cocaine Urine VISTA NEGATIVE (< 300 ng/mL); Ecstacy Urine VISTA NEGATIVE (< 500 ng/mL); Methadone Urine VISTA NEGATIVE (< 300 ng/mL); PCP Urine VISTA NEGATIVE (< 25 ng/mL); THC Urine VISTA POSITIVE (< 50 ng/mL); Vista UDS pH Range 6
[2020-08-17] MEDS: Lactated Ringers 500 ML 999 ML IV ×3 (02:57→10:00)
--- NOTE | 2020-08-17 08:02 | PCM.HP.OB ---
History Date of Admission: 08/17/20 Final NICK: 08/16/20 Gestational age: 40 Weeks and 1 Days History of this : This is a 19 year-old, at 40.1 weeks gestational age present c/o contractions- pt progressed from 4cm to 6cm- admitted for labor. . Allergies Penicillins Allergy (Verified 08/17/20 02:47) Unknown ALL CILLINS Home Medications: Home Medications Vits [Prenatabs FA] 1 tab PO DAILY 05/18/20 Smoking Status: Current some day smoker Substance Use Type: Marijuana Number of Fetus(es): 1 NST - FHR Rate Baby A Baseline: 140 Variability:: Moderate Accelerations:: 15 x 15 Decelerations:: None NST Reactive:: Yes FHR Category:: Category I Uterine Activity:: q2-4min History Past Pregnancies: Past Pregnancies Delivery Date Name GA/ Weeks Outcome Route Wt Sex Labor Length Anesthesia Delivery Location Provider FOB Expected Infant Delivery Method: Spontaneous Vaginal Review of Systems HEENT: Denies: Difficulty Hearing, Head Aches Cardiovascular: Denies: Chest Pain Gastrointestinal: Denies: Abdominal Pain Physical Exam Vitals: Vital Signs Temp Pulse BP Pulse Ox 98.0 F 99 109/62 99 08/17/20 07:15 08/17/20 08:00 08/17/20 08:00 08/17/20 04:48 General: Alert, Oriented x3 Abdomen: Non Tender, Gravid Neurological: Cranial nerves II-XII grossly intact [place] MACHINE OPERATOR: Normal external genitalia Estimated gestational size: Appropriate for gestational size Presentation: Cephalic Cervix Dilation (cm): 8 Station: 0 Effacement (%): 80 - AROM performed- lt Meconium Assessment/Plan All Active Problems No significant past medical history (Acute) 37 weeks gestation of (Acute) Irregular contractions (Acute) This is a 19 year-old, at 40.1 weeks gestational age- admitted for labor 1) admit for L&D 2) monitor fhr/toco 3) anticipate 4) Nitrous for pain relief- may get epidural if requested 5) meconium on AROM- will have PEDS present for delivery.
[2020-08-17] MEDS: Ondansetron 4 MG/2 ML Vial IV (10:59)
[2020-08-17] MEDS: fentaNYL-bupivacaine (epidural) 100 ML BAG EPIDURAL (11:10)
[2020-08-17] MEDS: Oxytocin 30 units/NS 500 ml 30 UNITS/500 ML IV.SOLN IV (11:55)
[2020-08-17] MEDS: Lactated Ringers 1,000 ML 200 ML IV (13:36)
[2020-08-17] MEDS: Acetaminophen 500 MG Tablet PO (14:09)
[2020-08-17] MEDS: Oxytocin 30 units/NS 500 ml 30 UNITS/500 ML IV.SOLN 334 UNITS IV (15:30)
--- NOTE | 2020-08-17 15:37 | PCM.OPRPT ---
Vaginal Delivery Maternal Presentation: Active Labor Amniotic Membrane Rupture Type: Artificial Amniotic Fluid Description: Moderate meconium Final NICK: 08/16/20 Final NICK Source: US <20 weeks Gestational age: 40 Weeks and 1 Days Date of Procedure: 08/17/20 Pre-Operative Diagnosis: term gestation, active labor Post-Operative Diagnosis: same, live male infant Surgery/ Procedure Performed: Spontaneous Vaginal Delivery Type of Anesthesia: Epidural Description of Procedure: Maternal pushing efforts delivered the infant's head mouth nose were suctioned on the perineum nuchal cord x2 was reduced. Gentle downward traction delivered the anterior shoulder followed by the rest the infant's body. Delivery time 1526 on 08/17/20. the was placed on the maternal chest vigorous at . small first degree vaginal laceration - good hemostasis- no repair performed. Placenta delivered intact and without difficulty. Presentation: Vertex Placental Delivery Description: Spontaneous Placenta Disposition: [facility] Cord Vessel Description: 3 Vessels Cord Entanglement: Around neck x 2, loose Drain: Patrick to straight drain Estimated Blood Loss: 100 Infant A gender: Male (1 minute): 8 (5 minute): 9 Episiotomy Description: None Laceration: Vaginal Extension/lac - no repair needed- good hemostasis, 1st degree Medications given after delivery: IV Pitocin Complications: None
[2020-08-18] MEDS: Acetaminophen 500 MG Tablet 1000 MG PO (02:16)
[2020-08-18 03:00] VITALS: BP 103/56; PULSE 75; RESP 16; TEMP 36.8
--- NOTE | 2020-08-18 05:04 | PCM.PN.OB ---
Subjective: Doing well per patient and nursing staff. Ambulating and taking PO without difficulty. Voiding and passing flatus. Denies any headache, visual changes, chest pain, shortness of breath or increased pain. Planning D/C home today. . - Physical Exam Vitals/I&O's: Vital Signs Temp Pulse Resp BP Pulse Ox 98.2 F 75 16 103/56 L 98 08/18/20 03:00 08/18/20 03:00 08/18/20 03:00 08/18/20 03:00 08/17/20 20:05 Oxygen Delivery Method Room Air Weight: 149 lb 9.6 oz Body Mass Index (BMI) 26.4 Intake and Output for Last 24 Hours 08/16/20 08/17/20 08/18/20 23:59 23:59 23:59 Intake Total 3999.40 / 3999.40 Output Total 300 / 300 350 / 350 Balance 3699.40 / 3699.40 -350 / -350 General: Alert, Oriented x3, Cooperative HEENT: Atraumatic, Normocephalic Neck: Trachea Midline Lungs: Clear to auscultation, Normal air movement, No rhonchi, No wheeze Cardiovascular: Regular rate, Regular Rhythm, No murmurs Abdomen: Bowel Sounds Present - fundus firm 2 below U Extremities: No edema Psych/Mental Status: Normal Affect, Appropriate Microbiology Past 72 Hours 08/17/20 01:30 Mucosa - Nose SARS-CoV-2 Antigen (Rapid) - Final Current Medications Acetaminophen (Acetaminophen 500 Mg Tablet) 1,000 mg PO Q8H PRN PRN PRN Reason: Pain Score 1-3 Last Admin: 08/18/20 02:16 Dose: 1,000 mg Documented by: Bisacodyl (Bisacodyl 10 Mg Suppository) 10 mg RC UD PRN PRN Reason: If no BM Dibucaine (Dibucaine 30 Gm Tube) 1 applic TOPICAL TID PRN PRN; Protocol PRN Reason: Discomfort Hydrocortisone (Hydrocortisone 2.5% Crm) 1 applic TOPICAL TID PRN PRN; Protocol PRN Reason: Discomfort Ibuprofen (Ibuprofen 600 Mg Tablet) 600 mg PO Q6H PRN PRN PRN Reason: Pain Score 1-3 Methylergonovine Maleate (Methylergonovine 0.2 Mg/Ml Ampul) 0.2 mg IM X1 PRN PRN Reason: Excess bleeding/uterine atony Ondansetron HCl (Ondansetron 4 Mg/2 Ml Vial) 4 mg IV Q4H PRN PRN PRN Reason: Nausea Oxycodone HCl (Oxycodone 5 Mg Tablet) 5 - 10 mg PO Q4H PRN PRN PRN Reason: Pain Score 4-10 Senna/Docusate Sodium (Senna/Docusate Sodium 1 Tablet) 1 - 2 tablet PO DAILY PRN PRN PRN Reason: Constipation Simethicone (Simethicone 80 Mg Tablet) 80 mg PO PCHS PRN PRN Reason: Indigestion/Stomach pain Sodium Chloride (0.9% Saline Lock 10 Ml Syringe) 5 - 15 ml IV UD PRN PRN Reason: SALINE FLUSH Medical Necessity - Tobacco Use Smoking Status: Current some day smoker Assessment/Plan All Active Problems No significant past medical history (Acute) 37 weeks gestation of (Acute) Irregular contractions (Acute) A:PPD #1 P: 1) Routine and care 2) Vitals stable 3) Planning D/C home today 4) Follow up 2 week virtual and 6 week visit.
[2020-08-18 08:22] VITALS: BP 95/57; PULSE 78; RESP 18; TEMP 36.7
[2020-08-18] MEDS: oxyCODONE 5 MG Tablet PO (10:22)
[2020-08-18 12:00] VITALS: BP 105/72; PULSE 83; RESP 16; TEMP 36.5
--- NOTE | 2020-08-18 14:36 | CASEMGMT ---
Social Work Assessment Labor and Delivery Unit Patient Address: [address] [place] [address], [place] [address] Phone number: [phone] Date of Referral: 08/18/2020 Time of Referral: [id number] Referred By: Verbal notification by nursing Date of Intervention: 08/18/2020 Time of Intervention: 1400 Reason for Referral: Maternal history of marijuana use and mental health History obtained from: Medical records and mother of baby (MOB) Dimple Malcolm; father of baby (FOB) Liliana Delgado also present for part of conversation. Household composition: MOB and FOB live with the MOB mother, stepfather, and MOB 19-year-old sister. Home situation is reported as safe and adequate. Patient's parent/guardian status: ROSA is a 19-year-old single female, involved with the FOB who is a single male descending from the [place] [facility] [place] (was born on [facility] in [place]). MOB and FOB have been together for about 1 year. baby is to be named Donnie Delgado, born 08/17/2022. Medical History: ROSA is 1, para 0 now 1 after delivering Donnie. care started at 7 weeks gestation and regular thereafter. Donnie delivered full-term weighing 7 pounds 15 ounces. Apgars 8 and 9 at 1 and 5 minutes of life respectively. Educational Status: ROSA has an 11th grade education. Reports ability to read, write, and understand what is read. 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 FOB works at a [employer] full-time, and no concerns reported regarding finances. Infant Supplies: MOB and FOB report to have needed infant supplies including a car seat, crib, pack and play, clothing, diapers, wipes, bottles and a can of formula for backup. ROSA has a breast pump and plans to breast-feed at this time. Childcare/Caregiver(s): ROSA will be the primary caregiver, with help from the FOB. Transportation: MOB and FOB both Drive, no reported concerns. Programs/Agencies Involved: ROSA has Medicaid through job and family services. Connected with [employer], seeing Davina Quan for counseling. No other active agency involvement. Verbally agrees to an early Headstart program through community action. Children Services/Legal Issues: No reported legal concerns. MOB endorses history of children services as a minor, due to her father's history of substance use issues. Behavioral Health Issues: Mental Health History: MOB has a history of bipolar disorder, anxiety, depression, and PTSD. MOB has been off medication since about May 2019. History of psychiatric hospitalization in 2019 for suicidal ideation. Medical record indicates a history of 2 prior suicide attempts, prior to 2019. MOB denies any thoughts, planning, or intent for suicide at this time. Denies any significant thoughts of suicide since 2019, reporting that any thoughts would be fleeting without much thought behind them. No reports reports of any suicidal thoughts at the current time. Mallory depression screen score of 8 depression, with question #10 an answer of never regarding thoughts of harming self in the last week. MOB reports to cope by using positive self talk, talking through thoughts and reframe. MOB reports that if this does not help she will talk to either the FOB for her sister which typically helps as well. Substance Use History: MOB has a history of marijuana usage, reporting cessation at the beginning of after finding out. MOB reports that due to significant pain issues last week she purchased some marijuana to help with the pain. Last reported use was 08/16/2020. Denies any alcohol usage during , or outside of . Denies any history of other illicit substance use. Family History: MOB father has a history of substance use issues. The FOB has a reported history of depression, and has used marijuana in the past, though per MOB report not to the frequency of the MOB. Drug Screens: Maternal drug screen positive for marijuana on 12/29/2019 and then again at delivery on 08/17/2020. 's urine drug screen is negative, and meconium is pending. Family/Social Stressors: Unplanned but accepted . MOB and FOB both report they wanted to have a baby, but the occurred much sooner than expected. Maternal history of mental health issues, with MOB seeking out counseling in order to be proactive regarding MOB risk of depression. And will be reporting increased pain issues in the last week and relapsing on marijuana after reported cessation during the . Support Systems: MOB reports that the FOB is a strong support system, and very helpful in supporting MOB mental health. Additional emotional support is the MOB 19-year-old sister. Practical support available from the MOB parents and the FOB's parents. Depression/Shaken Baby/Safe Sleeping educated to shaken baby prevention and safe sleeping. Educated to mood and anxiety disorders including depression, anxiety, and psychosis. Educated to risk factors present and importance of seeking out help and support. MOB plans to maintain counseling at [facility], and reports plan to speak with her primary care doctor about restarting medication ASSESSMENT: Met with the MOB and FOB in the room together, and then alone with the MOB. MOB and FOB both calm, cooperative, and pleasant during social work intervention. FOB engaging in conversation when elicited, and actively listened when not speaking. MOB and FOB report to feel they have the supplies to care for the baby, adequate housing, and no safety concerns at the home. MOB reports she is taking steps to help support her emotional health by getting back into counseling, and future intent of talking to the doctor about restarting medication. MOB and FOB agree to an early Headstart referral. MOB signed referral form. Provided parents with [employer] applications, [facility] resource packet, and mood and anxiety disorder packet. Educated the MOB privately, to the need to call children services due to infant exposure in utero to marijuana. Allowed MOB opportunity to ask questions. No voiced concerns by nursing staff regarding parent child interactions or bonding. Safe Plan of Care for infant related to substance use: MOB reports intends to abstain from marijuana at this time, and expresses understanding of recommendation not to use marijuana and breast-feed at the same time. If MOB intent changes, and MOB returns to using marijuana, MOB reports she would make sure the baby was left in the care of the sober person. MOB would use the substance outside of the home, and would change her clothing upon returning inside to care for the baby. MOB intends to remain in counseling. PLAN: MOB and infant will discharge home today. Plan to call [facility] children services, but this will not hold up discharge. Plan to make referral to early Headstart. Monitor for meconium drug screen results. -IVETTE Hernandez MSW *Information documented in this assessment generated with [facility]*
--- NOTE | 2020-08-18 15:22 | CASEMGMT ---
Social work Labor and delivery unit Faxed early Headstart referral to confirm fax number at [facility].. Fax number is [phone]. Called [facility] children services, and spoke with Karin Guillen at [phone], extension [phone]. Referral for substance exposed in utero based on 2 maternal drug screens positive for marijuana. Reported infant's negative urine drug screen in the month pending meconium. Brief maternal and histories provided including history of maternal and paternal mental health, as well as community supports the family is involved with. Referral will be written up and determination made whether referral will be opened up for investigation on at this point. No reason to hold mom and baby in the hospital. Plan: MOB and baby discharging home today. Family involved, and MOB reports supportive. Early Headstart referral made. MOB already in counseling. Resources provided for [facility] social service agencies and mood and anxiety disorders. Will monitor for meconium drug screen results and report as indicated. -AGUILAR Hernandez, ASSOCIATE PROFESSOR OF PHILOSOPHY
--- NOTE | 2020-08-18 15:25 | DCINST_ITS ---
Discharge Diet: No Restrictions Discharge Activity: Return to Normal Activity, May not drive while taking narcotic pain medications., May Shower, May Take a Tub Bath May resume sexual activity in: 4-6 weeks Weight Bearing Status: Full weight bearing Additional Activity Instructions:: Nothing in the vagina for 4-6 weeks. You may return to work/school in 6 weeks. Call your doctor if your incision/area has: Continuous Slow Oozing, Sudden Increased Bleeding, Increased Pain/ Swelling, Increased Redness, Foul Smelling Discharge Call your doctor if you observe: Fever of 101 or Higher, Coldness, Increased Pain, Change in Color, Inability to urinate, Inability to have a bowel movement, Using more than one pad per hour, Shortness of breath, Calf discomfort, Uncontrolled pain Instructions: After a Vaginal , Common Questions About , : Caring for Yourself Additional Instructions: If you experience any of the following, contact your healthcare provider. * Bleeding that soaks a pad every hour for 2 hours * Fever 100.4 or higher * Unrelieved incision or abdominal pain * Swelling, redness, discharge or bleeding from your incision or episiotomy site * Your incision begins to separate * Problems urinating (including inability to urinate or burning while urinating). * Visual changes * Severe headache * Flu-like symptoms * Pain or redness in one of both of your breasts * Pain, warmth, tenderness or swelling in your legs, especially the calf area * Frequent nausea and vomiting * Symptoms of depression or anxiety If you experience any of the following, call 911 or go to the nearest Emergency Room. * Chest pain * Problems breathing * Seizure activity * Partial or complete paralysis of a body part, slurred speech, weakness or drooping of the face, or a sudden inability to walk or hold your balance Allergies/Adverse Reactions: Allergies Penicillins Allergy (Verified 08/17/20 02:47) Unknown ALL CILLINS Medications to take at Discharge Vits [Prenatabs FA ] 1 tab PO DAILY 05/18/20 Please Follow Up With: Ashia Chavarria MD When: Call to make an appointment with your doctor in 6 weeks. If you had elevated Blood Pressure or 4th degree laceration you will need to be seen in 2 weeks. Test Results: Test results from this visit will be discussed in further detail at your follow- up appointment, if applicable.
[2020-08-18 17:35] VITALS: BP 114/75; PULSE 65; RESP 16; TEMP 36.4
== END 2020-08-18 18:40 | disposition home or self-care (01) | DRG 560 ==
LOC: WPOUT 01:29 → WP 01:29
PROVIDERS: Obstetrics & Gynecology; Admitting Provider Obstetrics & Gynecology; Visit Provider Obstetrics & Gynecology
DX: O69.81X0 Labor and delivery complicated by cord around neck, without compression, not applicable or unspecified (principal); O99.334 Smoking (tobacco) complicating childbirth; O70.0 First degree perineal laceration during delivery; O77.0 Labor and delivery complicated by meconium in amniotic fluid; F17.200 Nicotine dependence, unspecified, uncomplicated; F12.90 Cannabis use, unspecified, uncomplicated; O99.324 Drug use complicating childbirth; Z37.0 Single live birth; Z3A.40 40 weeks gestation of pregnancy; O47.1 False labor at or after 37 completed weeks of gestation
CPT/HCPCS: 59025; 59050; 80307; 84112; 85025; 86850; 86900; 86901; 87426; 99218; J7120; G0378; J2405

== ENCOUNTER → 2020-12-20 08:41 | Outpatient (CLI) | payer MEDICAID, SELFPAY ==
[2020-08-17 01:35] VITALS: BMI 26.4
--- NOTE | 2020-12-20 08:43 | US_ITS ---
STUDY: ABDOMINAL ULTRASOUND - RIGHT UPPER QUADRANT REASON FOR VISIT: Female, 20 years old LOWER ABD PAIN TECHNIQUE: Ultrasound evaluation of the right upper quadrant was performed with real-time and static alfonso-scale imaging. TECHNICAL QUALITY: Adequate. COMPARISON: None. FINDINGS: Liver: The liver measures 14 cm. There is normal echogenicity of the liver. The bile ducts are within normal limits. There is hepatic color flow. The direction of portal flow is hepatopetal. There is no demonstrated mass lesion. Gallbladder: Normal distended gallbladder. The gallbladder wall measures 2 mm. There is a negative sonographic Miller''s sign. There is no pericholecystic fluid. There are no gallstones. Common Bile Duct (C.B.D.): The common bile duct measures 2 mm. Pancreas: Normal size of the head, body and tail of the pancreas. There is normal echogenicity of the pancreas. There is no demonstrated pancreatic mass or cyst. Right Kidney: Normal size of the right kidney. The right kidney measures 11.1 cm x 4.4 cm x 3.9 cm. Normal renal cortex. The right cortex measures 1.2 cm. There is no demonstrated renal mass or cyst. There is no right hydronephrosis. US/Abdomen Limited IMPRESSION: Normal right upper quadrant ultrasound examination. Electronically Signed: Paul Rich MD at 9:25 EDT , Service support ,
== END ==
PROVIDERS: PCP Nurse Practitioner Adult Health; Referring Provider Nurse Practitioner Adult Health; Visit Provider Nurse Practitioner Adult Health
DX: R10.30 Lower abdominal pain, unspecified (principal)
CPT/HCPCS: 76705

== ENCOUNTER 2021-07-29 00:50 | Emergency (ER) | payer MEDICAID, SELFPAY ==
[2021-07-29 03:35] LABS: Color, Urine Yellow (Yellow); Glucose, Dipstick Normal (Normal); Ketone-Dipstick Negative (Negative); Leukocyte Esterase-Dipstick 25 /ul (Negative); Nitrite-Dipstick Negative (Negative); Occult Blood-Urine 25 /ul (Negative); Protein-Dipstick 15 mg/dl (Negative); Specific Gravity, Urine 1.025 (1.002-1.030); Urine Bilirubin Dipstick Negative (Negative); Urine Clarity Clear (Clear); Urine Urobilinogen Normal (Normal)
[2021-07-29 03:43] LABS: Red Blood Cells-Urine 0-5 SEEN /hpf (0-5); White Blood Cells 0-5 SEEN /hpf (0-5)
[2021-07-29 03:44] LABS: Bacteria 2+ /hpf (None Seen); Mucous, Urine 3+ /hpf (<or=2+); Renal Epithelial Cells 0-5 SEEN /hpf (0-5); Squamous Epithelial Cells - UA 5-10 SEEN /hpf (5-10)
--- NOTE | 2021-07-29 04:02 | EDS_ITS ---
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 Denies nausea or vomiting. Denies fevers. Denies vaginal bleeding or abnormal discharge. No medications taken. Currently on prenatals. She takes medical marijuana for history of PTSD. Denies alcohol tobacco use. She states not currently taking psychiatric medicines due to her . PFSH PFSH Home Medications vit,[id number] 1 tab PO DAILY 05/18/20 [History Last Taken 08/10/20 08:00] nitrofurantoin monohyd/m-cryst [Macrobid] 100 mg PO Q12H 5 Days #10 cap 07/29/21 [Rx Last Taken Unknown] Allergy/AdvReac Type Severity Reaction Status Date / Time Penicillins Allergy Unknown Verified 08/17/20 02:47 Social History Smoking Status: Current some day smoker ROS ROS ED Constitutional Constitutional ED: Denies chills, fever(s) or sweats Eyes Eyes: Denies change in vision ENT ENT ED: Denies dysphagia or sore throat Cardiovascular Cardiovascular: Denies chest pain, leg edema, palpitations or racing heartbeat Respiratory/Chest Respiratory/Chest: Denies cough, dyspnea or dyspnea on exertion Gastrointestinal Gastrointestinal: Denies abdominal pain, diarrhea, nausea or vomiting Genitourinary Genitourinary ED: Denies dysuria, hematuria or urinary frequency Musculoskeletal Musculoskeletal: Reports back pain; Denies extremity pain or neck pain Integumentary Denies rash or wounds Neurologic Neurologic: Denies headache(s), paresthesias or weakness EXAM Physical Exam Const Positive well nourished and well developed General Appearance ED: well developed and NAD HEENT Reports moist mucous membranes normocephalic and atraumatic Eyes PERRL, EOMs intact bilaterally and conjunctivae normal General Eye ED: Yes normal appearance of both eyes Neck no lymphadenopathy and supple General: Negative for tenderness Chest Wall Chest: Negative for tenderness Resp normal respiratory effort and normal air movement Effort and Inspection: symmetric chest movement; Negative for respiratory distress Cardio regular rate, regular rhythm and no murmurs Peripheral Pulses: pulses 2+ throughout GI normal to inspection, nondistended, normoactive bowel sounds and non-tender GI Narrative: Gravid abdomen, no rebound or guarding. Palpation: Negative for guarding or rebound tenderness present Back/Spine no CVA tenderness and no thoracic nor lumbar tenderness Back/Spine Narrative: No rash Extremity normal to inspection General Extremety ED: Negative for edema or tenderness General Extremity: Negative for edema Neuro oriented x3 and no sensory deficits noted Sensorium / Orientation: awake and alert Skin no rashes or lesions noted and no wounds MDM MDM MDM Narrative Medical decision making narrative: Patient seen during downtime vital signs stable. Bedside ultrasound was performed by myself noted positive movement. heart tones 136 there is no hydro of the right kidney with evaluation of the left kidney. Laboratory studies white count 10 creatinine 0.7. Urine did note leukocytes with blood and 2+ bacteria negative WBCs. Culture sent. She declined any Tylenol for pain. She is started on Macrobid for 5 days. Return precautions discussed. Otherwise followed up as an outpatient. All questions were answered. Lab Data Labs: Laboratory Results - last 24 hr 07/29/21 03:08 Urine Color Yellow Urine Clarity Clear Urine pH 6.0 Ur Specific Entiat 1.025 Urine Protein 15 H Urine Glucose (UA) Normal Urine Ketones Negative Urine Occult Blood 25 H Urine Nitrite Negative Urine Bilirubin Negative Urine Urobilinogen Normal Ur Leukocyte Esterase 25 H Urine RBC 0-5 SEEN Urine WBC 0-5 SEEN Ur Squamous Epith Cells 5-10 SEEN Ur Renal Epithelial Cell 0-5 SEEN Urine Bacteria 2+ Urine Mucus 3+ Discharge Plan Triage ED Provider: Anil Cahney Dx/Rx/DC Orders Clinical Impression: UTI in , Second trimester Prescriptions: New nitrofurantoin monohyd/m-cryst [Macrobid] 100 mg capsule 100 mg PO Q12H 5 Days Qty: 10 RF: 0 No Action vit,[id number] 1 TABLET tablet 1 tab PO DAILY RF: 0 Primary Care Provider: Malou Hills Referrals: Malou Hills, THOMAS-C [Primary Care Provider] - Disposition Disposition: Home, Self Care
[2021-07-29 06:50] LABS: Anion Gap 7 (5-15); BUN 5 mg/dL (7-18); BUN/Creat Ratio 6.9 RATIO (10-20); Calcium,Total 8.4 mg/dL (8.5-10.1); Chloride 110 mmol/L (98-107); Creatinine, Serum 0.72 mg/dL (0.55-1.02); EST Glomerular Filtration Rate 108 mL/min (>60); Est Glom Filt Rate - Afr Amer 131 mL/min (>60); Glucose 100 mg/dL (74-106); Potassium 3.3 mmol/L (3.5-5.1); Sodium Level 139 mmol/L (136-145)
[2021-07-29 07:25] LABS: Red Blood Count 3.75 M/mm3 (4.2-5.4); White Blood Count 10.3 K/mm3 (4.4-11.0)
[2021-07-29 07:26] LABS: Absolute Lymphocyte Count 2.59 X10^3/uL (0.83-4.51); Absolute Neutrophil Count 6.6 X10^3/uL (2.0-7.7); Basophil% 1.8 % (0-1); Eosinophils% 0.3 % (0-5); Hematocrit 33.6 % (37-47); Hemoglobin 11.5 g/dL (12.0-15.0); Lymphocyte % 25.1 % (19-41); Mean Corp Hgb Conc 34.2 g/dL (32-36); Mean Corpuscular Hgb 30.7 pg (27.0-32.0); Mean Corpuscular Volume 89.6 fL (81-99); Mean Platelet Vol. 9.1 fl (6.2-12.0); Monocyte% 8.5 % (0-10); Neutrophil % 63.7 % (47-70); Platelet Count 200 K/mm3 (150-450); RBC Distribution Width CV 14.3 % (11.6-14.6); RBC Distribution Width SD 46.1 fl (35.1-43.9)
[2021-07-29 07:27] LABS: NRBC Flagged by Analyzer 0 % (0-5)
== END 2021-07-29 04:25 | disposition home or self-care (01) ==
PROVIDERS: Emergency Provider Emergency Medicine; PCP Nurse Practitioner Adult Health; Visit Provider Emergency Medicine
DX: O23.42 Unspecified infection of urinary tract in pregnancy, second trimester (principal); O99.322 Drug use complicating pregnancy, second trimester; F12.90 Cannabis use, unspecified, uncomplicated; F17.200 Nicotine dependence, unspecified, uncomplicated; O99.332 Smoking (tobacco) complicating pregnancy, second trimester; O99.342 Other mental disorders complicating pregnancy, second trimester; F43.10 Post-traumatic stress disorder, unspecified; Z3A.20 20 weeks gestation of pregnancy
CPT/HCPCS: 80048; 81001; 85025; 87086; 87088; 96360; 96361; 99285

== ENCOUNTER 2023-09-12 18:41 | Emergency (ER) | payer MEDICARE, MEDICAID, SELFPAY ==
[2023-09-12 18:41] VITALS: BP 105/73; PULSE 117; RESP 16; TEMP 35.7; O2SAT 100; BMI 19.2
--- NOTE | 2023-09-12 19:36 | EX.ED.UPPERE ---
HPI History of Present Illness Chief Complaint: Laceration Informant: patient Narrative Narrative: [id number] laceration right ring finger 3 PM with cutting vandana. Tetanus 2021. No anticoagulants. She went through a bunch of paper towels. She taped it and splinted it. Mother had her come here. No paresthesias or loss of function. PFSH PFSH Medical History no medical history Home Medications vits,calcium no.78-iron fumarate-folic acid 29 mg-1 mg tablet 1 tab PO DAILY 05/18/20 [History Last Taken 08/10/20 08:00] nitrofurantoin monohydrate/macrocrystals 100 mg capsule (Macrobid) 100 mg PO Q12H 5 days #10 caps 07/29/21 [Rx Last Taken Unknown] Allergy/AdvReac Type Severity Reaction Status Date / Time Penicillins Allergy Unknown Verified 08/17/20 02:47 Social History Smoking Status: Current some day smoker tobacco type: cigarettes ROS ROS ED Constitutional Constitutional ED: Denies chills, fever(s) or sweats Eyes Eyes: Denies change in vision ENT ENT ED: Denies dysphagia or sore throat Cardiovascular Cardiovascular: Denies chest pain, leg edema, palpitations or racing heartbeat Respiratory/Chest Respiratory/Chest: Denies cough, dyspnea or dyspnea on exertion Gastrointestinal Gastrointestinal: Denies abdominal pain, diarrhea, nausea or vomiting Genitourinary Genitourinary ED: Denies dysuria, hematuria or urinary frequency Musculoskeletal Musculoskeletal: Denies back pain, extremity pain or neck pain Integumentary Reports wounds; Denies rash Neurologic Neurologic: Denies headache(s), paresthesias or weakness EXAM Physical Exam Const Vital Signs: 09/12/23 18:41 Temperature 96.2 F L Temperature Source Temporal Pulse Rate 117 H Respiratory Rate 16 Blood Pressure 105/73 Blood Pressure Mean 83 Pulse Ox 100 Positive well nourished and well developed General Appearance ED: well developed and NAD HEENT Reports moist mucous membranes normocephalic and atraumatic Eyes EOMs intact bilaterally and conjunctivae normal General Eye ED: Yes normal appearance of both eyes Neck no lymphadenopathy and supple General: Negative for tenderness Chest Wall Chest: Negative for tenderness Resp normal respiratory effort and normal air movement Effort and Inspection: symmetric chest movement; Negative for respiratory distress Cardio regular rate, regular rhythm and no murmurs Peripheral Pulses: pulses 2+ throughout GI normal to inspection, nondistended, normoactive bowel sounds and non-tender Palpation: Negative for guarding or rebound tenderness present Back/Spine no CVA tenderness and no thoracic nor lumbar tenderness Extremity Extremity Narrative: Right hand: Ring finger would stick used for splinting with Band-Aids. This was removed. There was a 1.5 cm flap laceration on the ulnar aspect of the middle phalanx, there was no separation. There is minimal dried blood. Full range of motion of the PIP and DIP. Sensation intact distally. General Extremety ED: Negative for edema or tenderness General Extremity: Negative for edema Neuro oriented x3 and no sensory deficits noted Sensorium / Orientation: awake and alert Skin no rashes or lesions noted and no wounds MDM MDM MDM Narrative Medical decision making narrative: Interventions / MDM: Differential diagnosis: Laceration Diagnosis considered but do not suspect: No clinical tendon injury My EKG interpretation: N/A Imaging independently reviewed and interpreted by myself: N/A External documents reviewed: N/A Test considered but not ordered:N/A ED course: Patient laceration 4 hours ago now already sealing up. This is away from a tension joint region. Discussed Dermabond with the patient for which she agreed. 3 layers were placed. AlumaFoam splint provided. Outpatient follow-up given. All questions were answered. Re-evaluation: stable Disposition discussed with patient/family/significant other: Patient Case discussed with consulting clinician: N/A This note was generated with [employer] dictation software. It may contain incorrect words, spelling, and punctuation that were not noted in checking the note before signing. Discharge Plan Triage Chief Complaint: Laceration ED Provider: Anil Chaney Dx/Rx/DC Orders Clinical Impression: Laceration of right ring finger Instructions: ED Laceration, Skin Adhesive Prescriptions: No Action vit,[id number] 1 TABLET tablet 1 tab PO DAILY nitrofurantoin monohyd/m-cryst [Macrobid] 100 mg capsule 100 mg PO Q12H 5 Days Qty: 10 0RF Rx Instructions: must administer with a meal/food Primary Care Provider: Care Physician,No Primary Referrals: Cristina Espitia MD [Med Staff - Ordnance Truck Installation Mechanic] - 1 Week Care Physician,No Primary [Primary Care Provider] - Activity Restrictions/Additional Instructions: Laceration was Dermabond. Maintain finger splint to avoid wound opening up. Disposition Disposition: Home, Self Care Discharge Date/Time: 09/12/23 19:46
[2023-09-12 19:46] VITALS: BP 120/70; PULSE 95; RESP 16; TEMP 37.1; O2SAT 100
== END 2023-09-12 19:46 | disposition home or self-care (01) ==
PROVIDERS: Emergency Provider Emergency Medicine; Visit Provider Emergency Medicine
DX: S61.214A Laceration without foreign body of right ring finger without damage to nail, initial encounter (principal); F17.210 Nicotine dependence, cigarettes, uncomplicated; W26.8XXA Contact with other sharp object(s), not elsewhere classified, initial encounter
CPT/HCPCS: 12001; 99282

== ENCOUNTER 2024-04-24 19:33 | Emergency (ER) | payer MEDICARE, MEDICAID, SELFPAY ==
[2024-04-24 19:33] VITALS: BP 97/58; PULSE 90; RESP 16; TEMP 36.5; O2SAT 100; BMI 18.4
[2024-04-24 19:36] VITALS: BP 101/64; PULSE 75; RESP 15; TEMP 36.8; O2SAT 100
--- NOTE | 2024-04-24 19:41 | EDS_ITS ---
HPI History of Present Illness Chief Complaint: General Illness [facility] Medical History (Updated 04/24/24 @ 21:[address] Graeme Otero, DO) Bipolar 1 disorder Depression Anxiety Home Medications ?Medication ?Instructions ?Recorded ?Last Taken ?Type ondansetron 4 mg disintegrating 4 mg PO Q8H PRN PRN Nausea #10 tabs 04/24/24 Unknown Rx tablet Allergy/AdvReac Type Severity Reaction Status Date / Time Penicillins Allergy Unknown Verified 04/24/24 19:36 Social History Smoking Status: Current some day smoker tobacco type: cigarettes EXAM Physical Exam Const Vital Signs: 04/24/24 19:33 04/24/24 19:36 04/24/24 20:14 Temperature 97.7 F L 98.3 F Temperature Source Oral Oral Pulse Rate 90 75 Respiratory Rate 16 15 Respiratory Effort Normal Respiratory Pattern Normal Blood Pressure 97/58 L 101/64 Blood Pressure Mean 71 76 Pulse Ox 100 100 Oxygen Delivery Method Room Air Room Air 04/24/24 20:36 04/24/24 21:00 04/24/24 21:29 Temperature 98.4 F 98 F Temperature Source Oral Oral Pulse Rate 74 83 115 H Respiratory Rate 16 18 18 Respiratory Effort Respiratory Pattern Blood Pressure 101/64 119/65 119/65 Blood Pressure Mean 76 83 83 Pulse Ox 100 100 99 Oxygen Delivery Method Room Air Room Air Room Air 04/24/24 21:39 Temperature 98 F Temperature Source Pulse Rate 88 Respiratory Rate 18 Respiratory Effort Respiratory Pattern Blood Pressure 119/65 Blood Pressure Mean 83 Pulse Ox 98 Oxygen Delivery Method MDM MDM MDM Narrative Medical decision making narrative: HISTORY OF PRESENT ILLNESS: 23-year-old female presents with nausea vomiting diarrhea chills and bodyaches. She states she thinks may have been exposed to the flu. No she does smoke marijuana but denies any other drug use. Denies chest pain. Denies melena. Denies urinary complaints. She is not sexually active. Denies vaginal bleeding, discharge, severe lower abdominal pain, passage of any tissue or leak age of any fluid. REVIEW OF SYSTEMS: Pertinent positives: Nausea, vomiting, diarrhea, chills, body aches Pertinent negatives: As per HPI PHYSICAL EXAM: Nursing triage notes reviewed, Vital signs reviewed Constitutional: please see mdm HENT: MMM Eyes: Pupils equal round and reactive to light, Extraocular muscles intact Neck: No stridor, no JVD, full neck ROM Lungs: Clear to auscultation, No wheezing or rales. No increased work of breathing, no conversational dyspnea, no accessory muscle use, no nasal flaring. No respiratory distress noted Heart: Regular rate and rhythm, No murmurs, No rubs and No gallops, 2+ distal pulses (radial, femoral, posterior tibial) in all extremities Abdomen: Soft, there is no tenderness, rigidity, rebound or guarding, no obvious peritoneal signs, no palpable pulsatile abdominal masses, no auscultated abdominal bruit : No CVAT Extremities: No edema Neuro: No new focal neurological deficits, cranial nerves II through XII intact, 5/5 strength in all present extremities. Intact sensation to light touch in all present extremities, 2+ reflexes bilateral patella tendons. Skin: No rash or lesions noted MEDICAL DECISION MAKING: Chief Complaint: Nausea vomiting External records reviewed: Reviewed prior allergies, problem list, Factors affecting care: none Social determinants of health: marijuana use History obtained from others: none Consults: none [facility] Narrative: The patient was initially hemodynamically stable, afebrile and nontoxic- appearing. Abdominal exam was benign. There is no right upper quadrant tenderness, negative Miller sign. No right lower quadrant tenderness, no pain at McBurney's point. No peritoneal signs. Lungs were clear. There is no neck or chest crepitus noted to suggest esophageal injury. I considered the following differential diagnosis: Dehydration, electrolyte disturbance, flu, , cannabinoid induced hyperemesis, Initially resuscitated patient 1 L normal saline and 4 mg IV Zofran. ALL IMAGES (IF OBTAINED) HAVE BEEN PERSONALLY REVIEWED AND INTERPRETED BY MYSELF. Urine test was positive CBC with leukocytosis likely reactive from nausea vomiting as there is no focal source of infection and she had a benign abdominal exam, no anemia or thrombocytopenia noted BMP without evidence of significant electrolyte abnormalities, no anion gap, no acute kidney injury. LFTs show no evidence of hepatobiliary pathology. Lipase is wnl indicating no pancreatic inflammation. COVID flu and RSV are negative. Repeat abdominal exam is benign. After fluid resuscitation, Zofran patient noted improvement in symptoms. She was able to tolerate p.o. Patient was informed that she was . She is informed to start taking vitamins. She is informed to refrain from using NSAIDs. She is encouraged to look up foods that are contraindicated in . She is encouraged follow- up with her [employer]. The patient and/or family, caregivers express understanding. The patient and/or family, caregivers agrees with the plan. Shared decision making: I will have a discussion with the patient and or visitors regarding risk/benefits of further testing or admission. They will be made aware of of the risk/benefits inherent in this decision they will be given the opportunity to voice understanding. Total critical care time today provided was at least 0 minutes. This excludes separately billable procedures. Critical care time (if documented) is secondary to the patient having high probability of clinically significant/life threatening deterioration in the patient's condition which required my urgent intervention. Impression: 1. Nausea & vomiting 2. First trimester Dispo: Discharge home This note was generated with AudioName dictation software. It may contain incorrect words, spelling, and punctuation that were not noted in review of the chart prior to signing. Lab Data Labs: Laboratory Results - last 24 hr 04/24/24 19:50 WBC 25.3 H RBC 4.79 Hgb 13.8 Hct 41.5 MCV 86.6 MCH 28.8 MCHC 33.3 RDW Std Deviation 40.8 RDW Coeff of Clemente 13.1 Plt Count 277 MPV 8.6 Immature Gran % (Auto) 0.700 Neut % (Auto) 94.4 H Lymph % (Auto) 1.1 L Sampson % (Auto) 3.2 Eos % (Auto) 0.2 Baso % (Auto) 0.4 Absolute Neuts (auto) 23.9 H Absolute Lymphs (auto) 0.29 L Nucleated RBC % 0 Differential Comment SEE COMMENTS Platelet Estimate ADEQUATE RBC Morphology NORM C+C Anisocytosis RARE Sodium 139 Potassium 3.5 Chloride 109 H Carbon Dioxide 22.0 Anion Gap 8 BUN 16 Creatinine 0.88 Estim Creat Clear Calc 72.78 Est GFR (MDRD) Af Amer 100 Est GFR (MDRD) Non-Af 83 BUN/Creatinine Ratio 18.1 Glucose 148 H Calcium 9.0 Total Bilirubin 0.80 AST 21 ALT 30 Alkaline Phosphatase 85 Total Protein 8.8 H Albumin 4.3 Globulin 4.5 H Albumin/Globulin Ratio 1.0 Lipase 15 Urine Test Positive H Discharge Plan Triage Chief Complaint: General Illness ED Provider: Branden,Graeme Dx/Rx/DC Orders Clinical Impression: Instructions: ED Prescriptions: New ondansetron 4 mg tablet,disintegrating 4 mg PO Q8H PRN PRN (Reason: Nausea) Qty: 10 0RF Primary Care Provider: Care Physician,No Primary Referrals: Claribel Reyes DO [Med Staff - Active Staff] - Activity Restrictions/Additional Instructions: Thank you for trusting us with your care today! Your labs were consistent with early . There were reassuring for signs of significant dehydration, electrolyte disturbances or kidney dysfunction. First-line for nausea vomiting and is actually combination between vitamin B6 and Unisom also known as diclegis. You can obtain vitamin B6 and Unisom from your local drugstore. Take 10 mg of each daily to improve nausea and vomiting symptoms. Please take Tylenol (2 pills, 650 mg) every 6 hours as needed for pain and fever control. Please take Zofran as needed for nausea and vomiting. Please return to the emergency department if your symptoms change or worsen. Please follow with your primary care physician for further outpatient evaluation and management. Print Language: Turkish Disposition Disposition: Home, Self Care Discharge Date/Time: 04/24/24 21:49
--- NOTE | 2024-04-24 19:51 | EKG12_ITS ---
Test Reason : DYSRHYTHMIA Blood Pressure : */* mmHG Vent. Rate : 70 BPM Atrial Rate : 70 BPM P-R Int : 164 ms QRS Dur : 90 ms QT Int : 412 ms P-R-T Axes : * 56 -59 degrees QTcB Int : 444 ms Normal sinus rhythm RSR' or QR pattern in V1 suggests right ventricular conduction delay T wave abnormality, consider inferior ischemia Abnormal ECG Confirmed by MYLENE LITTLE, MAIKEL ([id number]), health editor ARIAN LANDERS ([id number]) on 04/25/2024 8:15:05 AM Referred By: Confirmed By: MAIKEL CHAKRABORTY MD
[2024-04-24] MEDS: 0.9% Normal Saline (1000mL) 1,000 ML 1000 ML IV (20:04)
[2024-04-24] MEDS: Ondansetron 4 MG/2 ML Vial IV (20:04)
[2024-04-24 20:08] LABS: Absolute Lymphocyte Count 0.29 X10^3/uL (0.83-4.51); Absolute Neutrophil Count 23.9 X10^3/uL (2.0-7.7); Basophil# 0.09 X10^3/uL; Basophil% 0.4 % (0-1); Eosinophil# 0.04 X10^3/uL; Eosinophils% 0.2 % (0-5); Hematocrit 41.5 % (37-47); Hemoglobin 13.8 g/dL (12.0-15.0); Lymphocyte # 0.29 X10^3/ul (0.83-4.51); Lymphocyte % 1.1 % (19-41); Mean Corp Hgb Conc 33.3 g/dL (32-36); Mean Corpuscular Hgb 28.8 pg (27.0-32.0); Mean Corpuscular Volume 86.6 fL (81-99); Mean Platelet Vol. 8.6 fl (6.2-12.0); Monocyte% 3.2 % (0-10); NRBC Flagged by Analyzer 0 % (0-5); Neutrophil # 23.89 X10^3/uL (2.7-7.7); Neutrophil % 94.4 % (47-70); POSITIVE DIFFERENTIAL YES; Platelet Count 277 K/mm3 (150-450); RBC Distribution Width CV 13.1 % (11.6-14.6); RBC Distribution Width SD 40.8 fl (35.1-43.9); Red Blood Count 4.79 M/mm3 (4.2-5.4); White Blood Count 25.3 K/mm3 (4.4-11.0)
[2024-04-24 20:24] LABS: Internal QC Validated? YES +Cl - CLEAR BKGD
[2024-04-24 20:25] LABS: Pregnancy, Urine Positive Negative
[2024-04-24 20:28] LABS: AST(SGOT) 21 U/L (15-37); Alanine Aminotransfer ALT/SGPT 30 U/L (13-56); Albumin, Serum 4.3 g/dL (3.2-5.0); Alkaline Phosphatase 85 U/L (45-117); Anion Gap 8 (5-15); BUN 16 mg/dL (7-18); BUN/Creat Ratio 18.1 RATIO (10-20); Chloride 109 mmol/L (98-107); Creatinine, Serum 0.88 mg/dL (0.55-1.02); EST Glomerular Filtration Rate 83 mL/min (>60); Est Glom Filt Rate - Afr Amer 100 mL/min (>60); Estimated Creatinine Clearance 72.78 ml/min; Globulin 4.5 g/dL (2.2-4.2); Glucose 148 mg/dL (74-106); Lipase 15 U/L (13-75); Potassium 3.5 mmol/L (3.5-5.1); Protein, Total 8.8 g/dL (6.4-8.2); Sodium Level 139 mmol/L (136-145)
[2024-04-24 20:36] VITALS: BP 101/64; PULSE 74; RESP 16; TEMP 36.9; O2SAT 100
[2024-04-24 20:48] LABS: Differential Indicated SCAN CRITERIA MET
[2024-04-24 20:51] LABS: Anisocytosis RARE; Differential Comment SEE COMMENTS; Platelet Estimate ADEQUATE (ADEQ); Red Cell Morphology NORM C+C NORMAL (NORM C&C)
[2024-04-24 21:00] VITALS: BP 119/65; PULSE 83; RESP 18; TEMP 36.6; O2SAT 100
[2024-04-24 21:29] VITALS: BP 119/65; PULSE 115; RESP 18; O2SAT 99
[2024-04-24 21:39] VITALS: BP 119/65; PULSE 88; RESP 18; TEMP 36.6; O2SAT 98
== END 2024-04-24 21:49 | disposition home or self-care (01) ==
PROVIDERS: Emergency Provider Emergency Medicine; Visit Provider Emergency Medicine
DX: O21.9 Vomiting of pregnancy, unspecified (principal); O99.321 Drug use complicating pregnancy, first trimester; F12.90 Cannabis use, unspecified, uncomplicated; F17.210 Nicotine dependence, cigarettes, uncomplicated; Z3A.00 Weeks of gestation of pregnancy not specified
CPT/HCPCS: 80053; 81025; 83690; 85025; 87631; 93005; 96361; 96374; 99284; A4216; J2405